=== PATIENT | female | born 1960 | race Caucasian/White ===

== ENCOUNTER 2019-01-21 09:03 | Emergency (ER) | payer MEDICAID ==
[~2019-01-21] VITALS: Ht 165.1 cm; Wt 88.6 kg
[~2019-01-21 09:03] MED LIST: CEPH500C2 PO; EMOL200L TP; SULF1TAB49 PO
[2019-01-21] MEDS ORDERED: ipratropium/albuterol 3ml nebule NEB ONE (09:45)
[2019-01-21] MEDS ORDERED: dexamethasone 4mg tablet PO ONE (09:45)
--- NOTE | 2019-01-21 10:17 | NUR ---
relieving RN for break, pt is resting quietly on [employer] labor standards director at bedside
[2019-01-21 10:55] LABS: PARTIAL THROMBOPLASTIN TIME 24 SECONDS (22-32)
[2019-01-21 11:11] LABS: ALANINE AMINOTRANSFERASE 82 U/L (12-78); ALBUMIN 3.4 G/DL (3.4-5.0); ALBUMIN/GLOBULIN RATIO 0.7 (1.1-1.5); ALKALINE PHOSPHATASE 167 IU/L (46-116); ANION GAP 8 (8-16); ASPARTATE AMINO TRANSFERASE 56 U/L (10-37); BILIRUBIN,TOTAL 0.7 MG/DL (0.1-1.0); BLOOD UREA NITROGEN 10 MG/DL (7-18); BUN/CREATININE RATIO 17.2 (6.6-38.0); CALCIUM 9.6 MG/DL (8.5-10.1); CHLORIDE 101 MMOL/L (99-107); CREATININE 0.58 MG/DL (0.40-0.90); GLUCOSE 66 MG/DL (70-104); MAGNESIUM 1.7 MG/DL (1.5-2.4); POTASSIUM 4.1 MMOL/L (3.5-5.1); SODIUM 135 MMOL/L (135-145); TOTAL CARBON DIOXIDE 26.1 MMOL/L (24-32); TOTAL PROTEIN 8.2 G/DL (6.4-8.2); eGFR > 90 ML/MIN
--- NOTE | 2019-01-21 11:33 | NUR ---
patient feeling "hypoglycemic" "that's why im so sleepy" patient eating yogurt and drinking whole milk at this time
--- NOTE | 2019-01-21 12:30 | NUR ---
PATIENT ATE A SANDWHICH, 6 OZ YOGURT , 240 ML WHOLE MILK, 2 PACKS CRACKERS, 120 ML OJ
[2019-01-21 12:43] LABS: BASOPHILS % (AUTO) 0.4 % (0-1); EOSINOPHILS % (AUTO) 0.5 % (0-6); HEMATOCRIT 44.6 % (35.0-45.0); HEMOGLOBIN 15.4 g/dl (12.0-16.0); LYMPHOCYTES # (AUTO) 0.5 X10'3 (1.1-4.8); LYMPHOCYTES % (AUTO) 7.3 % (21-51); MEAN CORPUSCULAR HEMOGLOBIN 33.4 PG (27.0-31.0); MEAN CORPUSCULAR HGB CONC 34.5 g/dL (33.0-36.5); MEAN CORPUSCULAR VOLUME 96.9 FL (78-98); MEAN PLATELET VOLUME 7.6 FL (7.4-10.4); MONOCYTES # (AUTO) 0.1 X10'3 (0-0.9); MONOCYTES % (AUTO) 1.7 % (2-12); NEUTROPHILS # (AUTO) 5.8 X10'3 (1.8-7.7); NEUTROPHILS % (AUTO) 90.1 % (42-75); PLATELET COUNT 146 X10'3 (140-440); RED BLOOD COUNT 4.61 X10'6 (4.20-5.60); RED CELL DISTRIBUTION WIDTH 13.5 % (11.5-14.5); WHITE BLOOD COUNT 6.4 X10'3 (4.5-11.0)
[2019-01-21] MEDS ORDERED: azithromycin 250mg tablet PO ONE (13:40)
[2019-01-21] MEDS ORDERED: EPIN0.3P3 IM (13:41)
[2019-01-21] MEDS ORDERED: PRED20TA PO (13:41)
[2019-01-21] MEDS ORDERED: AZIT250T2 PO (13:41)
[2019-01-21] MEDS ORDERED: ALBU6.7H INH (13:41)
--- NOTE | 2019-01-21 13:53 | NUR ---
relieving RN for break, pt is resting quietly on gurney, waiting to go to CT
--- NOTE | 2019-01-21 13:57 | NUR ---
pt to CT
[2019-01-21 14:48] VITALS: BP 119/73
== END 2019-01-21 14:50 | disposition home or self-care (01) ==
LOC: ER 09:03
DX: J90 Pleural effusion, not elsewhere classified (principal); E11.9 Type 2 diabetes mellitus without complications; Z98.890 Other specified postprocedural states; Z56.0 Unemployment, unspecified; Z88.8 Allergy status to other drugs, medicaments and biological substances; Z88.5 Allergy status to narcotic agent; Z79.899 Other long term (current) drug therapy
CPT/HCPCS: 36415; 71046; 71250; 80053; 83605; 83735; 83880; 84484; 85025; 85610; 85730; 87040; 93005; 94640; 94760; 99284; J8540

== ENCOUNTER 2019-08-27 13:19 | Emergency (ER) | payer MEDICAID ==
[~2019-08-27] VITALS: Ht 165.1 cm; Wt 93.2 kg
[~2019-08-27 13:19] MED LIST changes: +ALBU6.7H9 INH; +EPIN0.3P3 IM
[2019-08-27 13:23] VITALS: BP 133/78
[2019-08-27] MEDS ORDERED: METH-360 PO (14:33)
[2019-08-27] MEDS ORDERED: NAPR-56 PO (14:33)
[2019-08-27] MEDS ORDERED: ketorolac tromethamine 15mg/ml inj. IM ONE (14:35)
[2019-08-27] MEDS ORDERED: orphenadrine citrate 60mg/2ml inj. IM ONE (14:35)
== END 2019-08-27 14:49 | disposition home or self-care (01) ==
LOC: ER 13:20
DX: M25.511 Pain in right shoulder (principal); E11.9 Type 2 diabetes mellitus without complications; Z98.890 Other specified postprocedural states; Z56.0 Unemployment, unspecified; Z88.8 Allergy status to other drugs, medicaments and biological substances; Z88.6 Allergy status to analgesic agent; Z88.5 Allergy status to narcotic agent; Z79.899 Other long term (current) drug therapy; X50.1XXA Overexertion from prolonged static or awkward postures, initial encounter; Y93.89 Activity, other specified; Y92.89 Other specified places as the place of occurrence of the external cause; Y99.8 Other external cause status
CPT/HCPCS: 96372; 99283; J1885; J2360

== ENCOUNTER 2019-08-30 18:22 | Emergency (ER) | payer MEDICAID ==
[~2019-08-30] VITALS: Ht 165.1 cm; Wt 93.0 kg
[~2019-08-30 18:22] MED LIST changes: +METH-360 PO; +NAPR-56 PO
[2019-08-30] MEDS ORDERED: oxyCODONE/APAP 5-325mg tablet PO ONE (19:05)
[2019-08-30] MEDS ORDERED: ondansetron 4mg rapidly disintigrating tab PO ONE (19:05)
[2019-08-30] MEDS ORDERED: OXYC-134 PO (19:48)
[2019-08-30] MEDS ORDERED: ONDA4TAB12 PO (19:48)
[2019-08-30 20:15] VITALS: BP 122/67
== END 2019-08-30 20:17 | disposition home or self-care (01) ==
LOC: ER 18:23
DX: M25.511 Pain in right shoulder (principal); E11.9 Type 2 diabetes mellitus without complications; Z98.890 Other specified postprocedural states; Z56.0 Unemployment, unspecified; Z88.6 Allergy status to analgesic agent; Z88.5 Allergy status to narcotic agent; Z79.899 Other long term (current) drug therapy
CPT/HCPCS: 73030; 99283

== ENCOUNTER 2019-09-02 13:04 | Inpatient (IN) | payer MEDICAID ==
[~2019-09-02] VITALS: Ht 165.1 cm; Wt 93.0 kg
[~2019-09-02 13:04] MED LIST changes: +ONDA4TAB12 PO; +OXYC-134 PO
[2019-09-02 14:43] LABS: EOSINOPHILS # (AUTO) 0.1 X10'3 (0-0.9); EOSINOPHILS % (AUTO) 0.4 % (0-6); MEAN CORPUSCULAR HEMOGLOBIN 33.9 PG (27.0-31.0)
[2019-09-02 14:45] LABS: BASOPHILS % (AUTO) 0.2 % (0-1); HEMATOCRIT 44.8 % (35.0-45.0); HEMOGLOBIN 15.5 g/dl (12.0-16.0); LYMPHOCYTES # (AUTO) 0.7 X10'3 (1.1-4.8); LYMPHOCYTES % (AUTO) 4.1 % (21-51); MEAN CORPUSCULAR HGB CONC 34.7 g/dL (33.0-36.5); MEAN CORPUSCULAR VOLUME 97.9 FL (78-98); MEAN PLATELET VOLUME 7.8 FL (7.4-10.4); MONOCYTES # (AUTO) 1.4 X10'3 (0-0.9); NEUTROPHILS # (AUTO) 15.3 X10'3 (1.8-7.7); NEUTROPHILS % (AUTO) 87.3 % (42-75); PLATELET COUNT 223 X10'3 (140-440); RED BLOOD COUNT 4.58 X10'6 (4.20-5.60); WHITE BLOOD COUNT 17.5 X10'3 (4.5-11.0)
[2019-09-02 14:57] LABS: ALANINE AMINOTRANSFERASE 49 U/L (12-78); ALBUMIN 2.7 G/DL (3.4-5.0); ALBUMIN/GLOBULIN RATIO 0.6 (1.1-1.5); ALKALINE PHOSPHATASE 163 IU/L (46-116); ANION GAP 5 (8-16); ASPARTATE AMINO TRANSFERASE 50 U/L (10-37); BILIRUBIN,TOTAL 0.8 MG/DL (0.1-1.0); BLOOD UREA NITROGEN 19 MG/DL (7-18); BUN/CREATININE RATIO 24.7 (6.6-38.0); CALCIUM 8.9 MG/DL (8.5-10.1); CHLORIDE 100 MMOL/L (99-107); CREATININE 0.77 MG/DL (0.40-0.90); GLUCOSE 100 MG/DL (70-104); LIPASE 55 U/L (73-393); POTASSIUM 4.6 MMOL/L (3.5-5.1); SODIUM 133 MMOL/L (135-145); TOTAL CARBON DIOXIDE 28.5 MMOL/L (24-32); TOTAL PROTEIN 7.1 G/DL (6.4-8.2); eGFR 77 ML/MIN
[2019-09-02] MEDS ORDERED: oxyCODONE/APAP 5-325mg tablet PO ONE (15:20)
[2019-09-02] MEDS ORDERED: ondansetron/PF 4mg/2ml inj IV ONE (15:20)
[2019-09-02] MEDS ORDERED: ketorolac trometh. 30mg/ml inj. IM ONE (15:20)
[2019-09-02] MEDS ORDERED: normal saline 1000ML IV soln IVB ONE (15:20)
[2019-09-02 16:29] LABS: PARTIAL THROMBOPLASTIN TIME 27 SECONDS (22-32)
--- NOTE | 2019-09-02 16:55 | NUR ---
IN TO ATTEMPT AND IV ON PT. PT STARTED CUSSING AND YELLING AT ME STATING "THEY CAN;T GET AN IV ON ME, I HAVE HAD SO MANY IVS AND YOU WONT BE ABLE TO GET ONE" EXPLAINED TO PT THE IMPORTANCE OF IV FLUIDS SHE IS DEHYDRATED. ATTEMPTED TO LOOK IN PTS HANDS AND SHE STARED TO YELL "JUST GIVE ME A SHOT." INFORMED DANIELLA TAO AND SHE WENT IN TO SEE PT SHE INFORMED PT OF THE IMPORTANCE OF THE IV AND FLUID. PT STATES SHE UNDERSTANDS BUT JUST NEEDS PAIN MEDS. PER DANIELLA OK TO GIVE TORADOL AND ZOFRAN IM. PT STATES SHE DID NOT KNOW WHAT THE MEDS ARE. EDUACTED PT ON TORADOL AND ZOFAN ALSO INFORMED PT SHE WAS GETTING PERCOCET. PT CHEWED THE PERCOCET, AND OTHER MEDS GIVEN IM IN LEFT GLUT. WILL RETURN TO CHECK PTS PAIN LEVEL AND ATTEMPT
[2019-09-02 17:51] LABS: CLARITY,URINE CLEAR (Clear); COLOR,URINE YELLOW (Yellow); GLUCOSE, URINE NEGATIVE (Neg); KETONES,URINE NEGATIVE (Neg); LEUKOCYTE ESTERASE ,URINE TRACE (Neg); NITRITES, URINE NEGATIVE (Neg); OCCULT BLOOD,URINE TRACE-INTACT (Neg); PROTEIN,URINE TRACE mg/dl (Neg); URINE HCG NEGATIVE (NEG)
[2019-09-02 17:54] LABS: UA COLLECTION TYPE CLN CATCH MIDSTREAM
[2019-09-02 17:55] LABS: RBC,URINE NONE SEEN /HPF (0-2); WBC,URINE 0-4 /HPF (0-4)
[2019-09-02 17:56] LABS: BACTERIA,URINE FEW /HPF (Neg); MUCUS STRANDS FEW /LPF (Neg); SQUAMOUS EPITHELIAL CELL,UR MODERATE /LPF (FEW)
--- NOTE | 2019-09-02 18:06 | NUR ---
AFTER MULTIPLE ATTEMPTS 18G TO RIGHT EJ STARTED. PT PAIN 2/10. PT DECREASED ANXIETY ABLE TO KHANH IV START AFTER PAIN MEDS AND REST
[2019-09-02] MEDS ORDERED: CefTRIAXone 2gm/D5W 50ml 50 ML IV ONE (18:10)
[2019-09-02] MEDS ORDERED: azithromycin/NS 500mg/250ml 250 ML IV ONE (18:10)
[2019-09-02] MEDS ORDERED: BUPR200T2 PO (19:20)
[2019-09-02] MEDS ORDERED: magnesium 4gm in 100ml NS 100 ML IV PRN (20:45)
[2019-09-02] MEDS ORDERED: magnesium Cl slow-release 64mg tablet PO PRN (20:45)
[2019-09-02] MEDS ORDERED: potassium Cl 20 mEq SR tablet PO PRN ×2 (20:45)
[2019-09-02] MEDS ORDERED: magnesium 2GM in 50ml NS 50 ML IV PRN (20:45)
[2019-09-02] MEDS ORDERED: potassium CL 10mEq/100ml bag 100 ML IV PRN ×2 (20:45)
[2019-09-02] MEDS ORDERED: mag hydrox/Alum hydrox/simeth 30ml oral suspension PO PRN (20:45)
--- NOTE | 2019-09-02 21:17 | NUR ---
pt currently appears to be asleep. RR WNLs.
--- NOTE | 2019-09-02 21:45 | NUR ---
Patient in room [facility] 346 B. I have received report from Anup and had the opportunity to ask questions and assume patient care. Addendum: 09/02/19 at 2347 by Tiffanie Garcia RN Amended: Links added.
[2019-09-02 22:00] VITALS: BP 115/71
--- NOTE | 2019-09-02 22:00 | NUR ---
2200 pt arrived on floor via garney from the ER accompanied by SUSU Matias. Pt. awake alert and oriented at this time. Pt. denies c/o pain at this time. Addendum: 09/02/19 at 2347 by Tiffanie Garcia RN Amended: Links added.
[2019-09-03] VITALS: BP 127/68
[2019-09-03] MEDS: oxyCODONE/APAP 5-325mg tablet PO PRN ×3 (03:04→21:32)
[2019-09-03] MEDS ORDERED: normal saline 1000ml 1,000 ML IV SCH (03:15)
[2019-09-03 05:20] LABS: BASOPHILS # (AUTO) 0.1 X10'3 (0-0.2); BASOPHILS % (AUTO) 0.4 % (0-1); EOSINOPHILS # (AUTO) 0.1 X10'3 (0-0.9); EOSINOPHILS % (AUTO) 0.4 % (0-6); HEMATOCRIT 39.4 % (35.0-45.0); HEMOGLOBIN 13.6 g/dl (12.0-16.0); LYMPHOCYTES % (AUTO) 5.5 % (21-51); MEAN CORPUSCULAR HEMOGLOBIN 33.9 PG (27.0-31.0); MEAN CORPUSCULAR HGB CONC 34.5 g/dL (33.0-36.5); MEAN CORPUSCULAR VOLUME 98.4 FL (78-98); MEAN PLATELET VOLUME 7.9 FL (7.4-10.4); MONOCYTES # (AUTO) 2.1 X10'3 (0-0.9); MONOCYTES % (AUTO) 11.6 % (2-12); NEUTROPHILS # (AUTO) 14.6 X10'3 (1.8-7.7); NEUTROPHILS % (AUTO) 82.1 % (42-75); PLATELET COUNT 214 X10'3 (140-440); RED CELL DISTRIBUTION WIDTH 13.9 % (11.5-14.5); WHITE BLOOD COUNT 17.8 X10'3 (4.5-11.0)
[2019-09-03 05:38] LABS: ALBUMIN 2.2 G/DL (3.4-5.0); ANION GAP 6 (8-16); BLOOD UREA NITROGEN 22 MG/DL (7-18); BUN/CREATININE RATIO 28.6 (6.6-38.0); CALCIUM 8.2 MG/DL (8.5-10.1); CHLORIDE 100 MMOL/L (99-107); CREATININE 0.77 MG/DL (0.40-0.90); GLUCOSE 94 MG/DL (70-104); MAGNESIUM 1.7 MG/DL (1.5-2.4); POTASSIUM 4.4 MMOL/L (3.5-5.1); SODIUM 131 MMOL/L (135-145); TOTAL CARBON DIOXIDE 25.3 MMOL/L (24-32); eGFR 77 ML/MIN
--- NOTE | 2019-09-03 06:00 | NUR ---
Problems reprioritized. Patient report given, questions answered & plan of care reviewed with Estee CRISTOBAL. Addendum: 09/03/19 at 0653 by Tiffanie Garcia RN Amended: Links added.
[2019-09-03] MEDS ORDERED: dextrose ORAL solution 15 GM/59 ML bottle PO PRN ×2 (06:25)
[2019-09-03] MEDS ORDERED: glucagon, human recombinant 1mg kit SUBCUT PRN (06:25)
[2019-09-03] MEDS ORDERED: insulin Lispro (HumaLOG) vial - multi-dose SQ SCH (06:25)
[2019-09-03] MEDS ORDERED: dextrose 50%-water 50ml dispensing syringe IV PRN ×2 (06:25)
[2019-09-03] MEDS ORDERED: MESSAGE TO PHARMACY PO ONE (06:25)
--- NOTE | 2019-09-03 06:25 | NUR ---
Patient in room [facility] 346B. I have received report from Tiffanie CRISTOBAL and had the opportunity to ask questions and assume patient care.
[2019-09-03] MEDS ORDERED: EPINEPHRINE IM PRN (06:35)
[2019-09-03 07:00] VITALS: BP 141/58
--- NOTE | 2019-09-03 07:24 | NUR ---
Received positive blood culture report from lab, paged Dr France PAGER ID: [phone] MESSAGE: Estee copeland Surg. RE [facility] 346B. FYI Lab reported positive gram cocci clusters from IV start on 09/02. Thank you
[2019-09-03 07:37] LABS: HEMOGLOBIN A1C 5.5 % (4.5-6.2)
[2019-09-03] MEDS: buPROPion SR 100mg tab PO SCH (07:43)
[2019-09-03] MEDS: lactobacillus rhamnosus 10,000 MMU CELLS/CAPSULE PO SCH ×2 (07:43→19:50)
[2019-09-03] MEDS: K and/or MAG REPLACEMENT MC SCH ×2 (07:46→20:00)
[2019-09-03] MEDS ORDERED: enoxaparin 40mg/0.4ml syringe SQ SCH (08:00)
--- NOTE | 2019-09-03 08:36 | NUR ---
Paged Dr France regarding additional positive blood culture lab reported PAGER ID: [phone] MESSAGE: Estee copeland [phone]. RE [facility] 346B. FYI pt also has positive gram cocci clusters in left arm aerobic blood culture. Thank you
[2019-09-03 11:00] VITALS: BP 119/37
--- NOTE | 2019-09-03 12:08 | NUR ---
Paged Dr France to make aware of additional positive blood culture: gram positive cocci clusters; anaerobic bottle; source IV start
[2019-09-03] MEDS ORDERED: vancomycin/NS 1 GM ADD-VANTAGE 250 ML IV SCH (13:55)
[2019-09-03] MEDS: vancomycin/NS 1 GM ADD-VANTAGE 250 ML IV SCH ×2 (14:26→16:05)
[2019-09-03 18:00] VITALS: BP 141/69
[2019-09-03] MEDS ORDERED: azithromycin/NS 500mg/250ml 250 ML IV SCH (18:00)
[2019-09-03] MEDS ORDERED: CefTRIAXone 2gm/D5W 50ml 50 ML IV SCH (18:00)
--- NOTE | 2019-09-03 18:22 | NUR ---
Problems reprioritized. Patient report given, questions answered & plan of care reviewed with Walt CRISTOBAL.
--- NOTE | 2019-09-03 18:28 | NUR ---
Patient in room [facility] 346. I have received report from SUSU Fontanez and had the opportunity to ask questions and assume patient care.
[2019-09-03] MEDS: ondansetron/PF 4mg/2ml inj IV PRN (19:03)
[2019-09-03] MEDS ORDERED: acetaminophen 325mg tablet PO PRN (19:40)
[2019-09-03] MEDS ORDERED: lactobacillus rhamnosus 10,000 MMU CELLS/CAPSULE PO SCH (20:00)
[2019-09-03] MEDS: insulin glargine (Lantus) pen - multi-dose SQ SCH (21:00)
[2019-09-04 00:31] VITALS: BP 118/64
[2019-09-04 03:55] LABS: EOSINOPHILS # (AUTO) 0.1 X10'3 (0-0.9); EOSINOPHILS % (AUTO) 0.7 % (0-6); LYMPHOCYTES # (AUTO) 0.8 X10'3 (1.1-4.8); MEAN PLATELET VOLUME 7.4 FL (7.4-10.4); NEUTROPHILS % (AUTO) 79.8 % (42-75)
[2019-09-04 03:58] LABS: BASOPHILS # (AUTO) 0.1 X10'3 (0-0.2); BASOPHILS % (AUTO) 0.6 % (0-1); HEMATOCRIT 39.5 % (35.0-45.0); HEMOGLOBIN 13.5 g/dl (12.0-16.0); LYMPHOCYTES % (AUTO) 5.7 % (21-51); MEAN CORPUSCULAR HEMOGLOBIN 33.7 PG (27.0-31.0); MEAN CORPUSCULAR HGB CONC 34.3 g/dL (33.0-36.5); MEAN CORPUSCULAR VOLUME 98.4 FL (78-98); MONOCYTES # (AUTO) 1.9 X10'3 (0-0.9); MONOCYTES % (AUTO) 13.2 % (2-12); NEUTROPHILS # (AUTO) 11.7 X10'3 (1.8-7.7); PLATELET COUNT 170 X10'3 (140-440); RED BLOOD COUNT 4.01 X10'6 (4.20-5.60); RED CELL DISTRIBUTION WIDTH 13.8 % (11.5-14.5); WHITE BLOOD COUNT 14.6 X10'3 (4.5-11.0)
[2019-09-04] MEDS ORDERED: vancomycin/NS 1 GM ADD-VANTAGE 250 ML IV SCH (04:00)
[2019-09-04 04:01] LABS: ANION GAP 4 (8-16); BLOOD UREA NITROGEN 13 MG/DL (7-18); BUN/CREATININE RATIO 20.3 (6.6-38.0); CALCIUM 8.3 MG/DL (8.5-10.1); CHLORIDE 106 MMOL/L (99-107); CREATININE 0.64 MG/DL (0.40-0.90); GLUCOSE 89 MG/DL (70-104); LACTATE DEHYDROGENASE 216 U/L (81-234); MAGNESIUM 1.8 MG/DL (1.5-2.4); POTASSIUM 4.2 MMOL/L (3.5-5.1); SODIUM 137 MMOL/L (135-145); eGFR > 90 ML/MIN
[2019-09-04] MEDS: oxyCODONE/APAP 5-325mg tablet PO PRN (04:01)
--- NOTE | 2019-09-04 06:22 | NUR ---
Problems reprioritized. Patient report given, questions answered & plan of care reviewed with SUSU Singh.
[2019-09-04 07:00] VITALS: BP 126/70
[2019-09-04] MEDS: K and/or MAG REPLACEMENT MC SCH ×2 (08:00→20:00)
[2019-09-04] MEDS: buPROPion SR 100mg tab PO SCH (09:10)
[2019-09-04] MEDS: lactobacillus rhamnosus 10,000 MMU CELLS/CAPSULE PO SCH ×2 (09:10→21:21)
[2019-09-04 10:22] VITALS: BP 127/67
[2019-09-04 10:45] VITALS: BP 138/75
[2019-09-04 11:27] VITALS: BP 144/71
[2019-09-04 12:14] LABS: GLUCOSE,BODY FLUID 74 MG/DL; LDH,BODY FLUID 684 U/L
[2019-09-04 12:57] LABS: EOSINOPHILS,BODY FLUID 4 %; LYMPHOCYTES,BODY FLUID 8 %; MONOCYTES,BODY FLUID 1 %; NEUTROPHILS,BODY FLUID 87 %
[2019-09-04 12:58] LABS: BFAPPEAR CLOUDY
[2019-09-04 12:59] LABS: BF RBC COUNT 1480 /CU MM; BF WBC COUNT 860 /CU MM (0-1000); BFCOLOR YELLOW; BFVOLUME 34 ML
--- NOTE | 2019-09-04 13:12 | NUR ---
made aware of large lump on pt.'s throat. Pt. states the lump has moved from right lower chest to throat. No issues swallowing.
--- NOTE | 2019-09-04 16:15 | NUR ---
MD feliciano pt. would like to have DNR status. Addendum: 09/04/19 at 1819 by Samantha Palacios RN Wrong ptOxana ERROR.
[2019-09-04] MEDS: VANCOmycin 1250MG/NS 250ml Bag 250 ML IV SCH (16:27)
[2019-09-04] MEDS: acetaminophen 325mg tablet PO PRN (17:40)
[2019-09-04] MEDS: ondansetron/PF 4mg/2ml inj IV PRN (17:42)
--- NOTE | 2019-09-04 18:13 | NUR ---
MD aware pt. had a low BG of 69 around 1730. MD states keep pt. on same fluids- D10 @ 100 and check BG Q2H. Ary RN aware. Addendum: 09/04/19 at 1820 by Samantha Palacios RN Wrong pt. ERROR
--- NOTE | 2019-09-04 18:40 | NUR ---
Patient in room [facility] 346. I have received report from Samantha CRISTOBAL and had the opportunity to ask questions and assume patient care.
--- NOTE | 2019-09-04 18:51 | NUR ---
Prescriptions found in room/ belongings. Stored in pharmacy.
--- NOTE | 2019-09-04 18:52 | NUR ---
Gave report to Krystal CRISTOBAL.
[2019-09-04 19:00] VITALS: BP 110/53
--- NOTE | 2019-09-04 19:03 | NUR ---
Pt. still receiving IV Vanco. Oncoming RN aware of 1800 doses of IV antibiotics.
--- NOTE | 2019-09-04 19:06 | NUR ---
Called pharmacy to space out the AbX as pt. only has an EJ to use.
[2019-09-04] MEDS: CefTRIAXone 2gm/D5W 50ml 50 ML IV SCH (19:26)
[2019-09-04] MEDS: insulin glargine (Lantus) pen - multi-dose SQ SCH (21:00)
[2019-09-04] MEDS: azithromycin/NS 500mg/250ml 250 ML IV SCH (21:22)
[2019-09-04] MEDS: magnesium hydroxide 30ml (MOM) UD suspension PO PRN (21:35)
[2019-09-05] VITALS: BP_SYST 128; BP_SYST 138; BP_DIAS 76; BP_DIAS 80
[2019-09-05] MEDS ORDERED: VANCOMYCIN LEVEL IV ONE (03:30)
[2019-09-05] MEDS: ondansetron/PF 4mg/2ml inj IV PRN ×2 (03:39→12:57)
[2019-09-05] MEDS: VANCOmycin 1250MG/NS 250ml Bag 250 ML IV SCH ×2 (03:39→17:39)
[2019-09-05 05:07] LABS: BASOPHILS # (AUTO) 0.1 X10'3 (0-0.2); BASOPHILS % (AUTO) 0.4 % (0-1); EOSINOPHILS % (AUTO) 0.3 % (0-6); HEMATOCRIT 37.1 % (35.0-45.0); HEMOGLOBIN 12.7 g/dl (12.0-16.0); LYMPHOCYTES # (AUTO) 0.7 X10'3 (1.1-4.8); LYMPHOCYTES % (AUTO) 5.1 % (21-51); MEAN CORPUSCULAR HEMOGLOBIN 33.6 PG (27.0-31.0); MEAN CORPUSCULAR HGB CONC 34.3 g/dL (33.0-36.5); MEAN PLATELET VOLUME 7.6 FL (7.4-10.4); MONOCYTES # (AUTO) 1.4 X10'3 (0-0.9); MONOCYTES % (AUTO) 9.5 % (2-12); NEUTROPHILS # (AUTO) 12.1 X10'3 (1.8-7.7); NEUTROPHILS % (AUTO) 84.7 % (42-75); PLATELET COUNT 161 X10'3 (140-440); RED BLOOD COUNT 3.78 X10'6 (4.20-5.60); RED CELL DISTRIBUTION WIDTH 13.8 % (11.5-14.5); WHITE BLOOD COUNT 14.3 X10'3 (4.5-11.0)
[2019-09-05 05:26] LABS: ANION GAP 5 (8-16); BLOOD UREA NITROGEN 11 MG/DL (7-18); BUN/CREATININE RATIO 17.5 (6.6-38.0); CALCIUM 8.5 MG/DL (8.5-10.1); CHLORIDE 105 MMOL/L (99-107); CREATININE 0.63 MG/DL (0.40-0.90); GLUCOSE 89 MG/DL (70-104); MAGNESIUM 1.9 MG/DL (1.5-2.4); SODIUM 137 MMOL/L (135-145); TOTAL CARBON DIOXIDE 27.1 MMOL/L (24-32); eGFR > 90 ML/MIN
[2019-09-05 05:53] LABS: PLATELET ESTIMATE NORMAL; TOTAL CELLS COUNTED 100; TOXIC GRANULATION 2+
--- NOTE | 2019-09-05 06:00 | NUR ---
Patient in room [facility] 346. I have received report from Krystal CRISTOBAL, and had the opportunity to ask questions and assume patient care.
--- NOTE | 2019-09-05 06:30 | NUR ---
Problems reprioritized. Patient report given, questions answered & plan of care reviewed with Irma rn and Jey chavarria.
[2019-09-05 07:00] VITALS: BP 117/73
[2019-09-05] MEDS: K and/or MAG REPLACEMENT MC SCH ×2 (08:00→20:00)
[2019-09-05] MEDS: buPROPion SR 100mg tab PO SCH (08:55)
[2019-09-05] MEDS: lactobacillus rhamnosus 10,000 MMU CELLS/CAPSULE PO SCH ×2 (08:55→20:00)
[2019-09-05 11:00] VITALS: BP 104/62
[2019-09-05] MEDS ORDERED: iohexol 300mg/ml 100ml inj. ONE ×2 (15:09→15:42)
[2019-09-05] MEDS ORDERED: metoclopramide 5 mg/ml inj IV PRN (16:10)
--- NOTE | 2019-09-05 18:00 | NUR ---
Problems reprioritized. Patient report given, questions answered & plan of care reviewed with Krystal CRISTOBAL.
--- NOTE | 2019-09-05 18:30 | NUR ---
Patient in room [facility] 346. I have received report from Irma CRISTOBAL and Jey RN and had the opportunity to ask questions and assume patient care.
[2019-09-05 19:00] VITALS: BP 130/70
[2019-09-05] MEDS: CefTRIAXone 2gm/D5W 50ml 50 ML IV SCH (20:14)
[2019-09-05] MEDS: insulin glargine (Lantus) pen - multi-dose SQ SCH (21:00)
[2019-09-05] MEDS: azithromycin/NS 500mg/250ml 250 ML IV SCH (21:25)
[2019-09-05] MEDS: oxyCODONE/APAP 5-325mg tablet PO PRN (21:26)
--- NOTE | 2019-09-05 22:30 | NUR ---
CREDIT CARD ANALYST answering call light find patient in a wet gown/bed. Unfortunately R DAVID had cannula mostly out and had leaked ABX that was infusing. Josee HERNANDEZ dc'd and call down to ER for placement of a new PIV (as patient a very hard stick).
--- NOTE | 2019-09-05 23:20 | NUR ---
MECHANICAL MAINTENANCE ENGINEER in assessing patient for a new PIV placement.
[2019-09-06] MEDS ORDERED: VANCOMYCIN LEVEL IV ONE (03:30)
[2019-09-06] MEDS: VANCOmycin 1250MG/NS 250ml Bag 250 ML IV SCH (04:21)
[2019-09-06 04:22] LABS: BASOPHILS % (AUTO) 0.3 % (0-1); EOSINOPHILS % (AUTO) 0.8 % (0-6); HEMATOCRIT 37.8 % (35.0-45.0); LYMPHOCYTES % (AUTO) 6.8 % (21-51); MEAN CORPUSCULAR HEMOGLOBIN 33.6 PG (27.0-31.0); MEAN CORPUSCULAR HGB CONC 34.3 g/dL (33.0-36.5); MEAN CORPUSCULAR VOLUME 97.9 FL (78-98); MEAN PLATELET VOLUME 7.9 FL (7.4-10.4); NEUTROPHILS % (AUTO) 85.1 % (42-75); PLATELET COUNT 167 X10'3 (140-440); RED BLOOD COUNT 3.86 X10'6 (4.20-5.60); RED CELL DISTRIBUTION WIDTH 13.9 % (11.5-14.5); WHITE BLOOD COUNT 14.9 X10'3 (4.5-11.0)
[2019-09-06 04:23] LABS: EOSINOPHILS # (AUTO) 0.1 X10'3 (0-0.9); NEUTROPHILS # (AUTO) 12.7 X10'3 (1.8-7.7)
[2019-09-06 04:34] LABS: ALBUMIN 1.9 G/DL (3.4-5.0); ANION GAP 7 (8-16); BLOOD UREA NITROGEN 14 MG/DL (7-18); BUN/CREATININE RATIO 21.5 (6.6-38.0); CALCIUM 8.5 MG/DL (8.5-10.1); CHLORIDE 107 MMOL/L (99-107); CREATININE 0.65 MG/DL (0.40-0.90); GLUCOSE 79 MG/DL (70-104); MAGNESIUM 2.1 MG/DL (1.5-2.4); POTASSIUM 3.9 MMOL/L (3.5-5.1); SODIUM 140 MMOL/L (135-145); TOTAL CARBON DIOXIDE 25.6 MMOL/L (24-32); VANCOMYCIN,TROUGH 7.1 UG/ML (6.0-14.0); eGFR > 90 ML/MIN
[2019-09-06] MEDS: ondansetron/PF 4mg/2ml inj IV PRN ×2 (06:03→19:48)
--- NOTE | 2019-09-06 06:10 | NUR ---
Patient in room [facility] 346. I have received report from SUSU Rice and had the opportunity to ask questions and assume patient care.
[2019-09-06 06:30] VITALS: BP 122/76
[2019-09-06] MEDS: K and/or MAG REPLACEMENT MC SCH ×2 (06:59→20:00)
[2019-09-06] MEDS ORDERED: VANCOmycin 1250MG/NS 250ml Bag 250 ML IV SCH (08:00)
[2019-09-06] MEDS: lactobacillus rhamnosus 10,000 MMU CELLS/CAPSULE PO SCH ×2 (08:35→19:51)
[2019-09-06] MEDS: levoFLOXACIN-Levaquin 750MG/D5 150 ML IV SCH (08:35)
[2019-09-06] MEDS: buPROPion SR 100mg tab PO SCH (08:35)
[2019-09-06 11:00] VITALS: BP 111/63
[2019-09-06] MEDS: oxyCODONE/APAP 5-325mg tablet PO PRN ×2 (13:37→22:49)
[2019-09-06] MEDS: acetaminophen 325mg tablet PO PRN (17:57)
--- NOTE | 2019-09-06 18:30 | NUR ---
Problems reprioritized. Patient report given, questions answered & plan of care reviewed with SUSU Rice.
[2019-09-06 19:00] VITALS: BP 103/72
[2019-09-07] VITALS: BP 128/78
[2019-09-07] MEDS: magnesium hydroxide 30ml (MOM) UD suspension PO PRN (00:14)
[2019-09-07] MEDS: oxyCODONE/APAP 5-325mg tablet PO PRN (05:27)
--- NOTE | 2019-09-07 06:14 | NUR ---
Problems reprioritized. Patient report given, questions answered & plan of care reviewed with Urvashi RN.
[2019-09-07 06:21] LABS: BASOPHILS # (AUTO) 0.1 X10'3 (0-0.2); BASOPHILS % (AUTO) 0.4 % (0-1); EOSINOPHILS # (AUTO) 0.1 X10'3 (0-0.9); HEMATOCRIT 37.1 % (35.0-45.0); HEMOGLOBIN 12.7 g/dl (12.0-16.0); LYMPHOCYTES # (AUTO) 0.8 X10'3 (1.1-4.8); LYMPHOCYTES % (AUTO) 7.3 % (21-51); MEAN CORPUSCULAR HEMOGLOBIN 33.9 PG (27.0-31.0); MEAN CORPUSCULAR HGB CONC 34.4 g/dL (33.0-36.5); MEAN CORPUSCULAR VOLUME 98.7 FL (78-98); MONOCYTES # (AUTO) 0.6 X10'3 (0-0.9); NEUTROPHILS # (AUTO) 10.1 X10'3 (1.8-7.7); NEUTROPHILS % (AUTO) 86.3 % (42-75); PLATELET COUNT 162 X10'3 (140-440); RED BLOOD COUNT 3.76 X10'6 (4.20-5.60); RED CELL DISTRIBUTION WIDTH 13.8 % (11.5-14.5); WHITE BLOOD COUNT 11.7 X10'3 (4.5-11.0)
--- NOTE | 2019-09-07 06:39 | NUR ---
Patient in room [facility] 346. I have received report from SUSU Rice and had the opportunity to ask questions and assume patient care.
[2019-09-07 06:40] LABS: ALBUMIN 1.9 G/DL (3.4-5.0); ANION GAP 9 (8-16); BLOOD UREA NITROGEN 15 MG/DL (7-18); BUN/CREATININE RATIO 25.4 (6.6-38.0); CALCIUM 8.4 MG/DL (8.5-10.1); CHLORIDE 106 MMOL/L (99-107); CREATININE 0.59 MG/DL (0.40-0.90); GLUCOSE 75 MG/DL (70-104); SODIUM 142 MMOL/L (135-145); TOTAL CARBON DIOXIDE 27.2 MMOL/L (24-32); eGFR > 90 ML/MIN
[2019-09-07 07:20] VITALS: BP 117/55
[2019-09-07] MEDS ORDERED: VANCOMYCIN LEVEL IV ONE (07:30)
[2019-09-07] MEDS: lactobacillus rhamnosus 10,000 MMU CELLS/CAPSULE PO SCH ×2 (07:53→20:27)
[2019-09-07] MEDS: buPROPion SR 100mg tab PO SCH (07:53)
[2019-09-07] MEDS: levoFLOXACIN-Levaquin 750MG/D5 150 ML IV SCH (07:54)
[2019-09-07] MEDS: K and/or MAG REPLACEMENT MC SCH ×2 (07:58→20:00)
[2019-09-07 08:22] LABS: TOTAL CELLS COUNTED 100
[2019-09-07 08:25] LABS: PLATELET ESTIMATE NORMAL; POLYCHROMASIA 1+; TOXIC GRANULATION 1+; TOXIC VACUOLATION 1+
[2019-09-07] MEDS: ondansetron/PF 4mg/2ml inj IV PRN (11:25)
[2019-09-07 11:30] VITALS: BP 137/80
--- NOTE | 2019-09-07 14:31 | NUR ---
Appetite is good, eating well, 75% average PO Intake. Admitted with pneumonia, sepsis, right pleural effusion. Has increased protein needs r/t PNA and sepsis and is meeting needs with PO diet, no nutrition intervention needed at this time. Will continue to follow. Recommend: 1. continue heart healthy, carb controlled diet 2. continue bowel care as needed 3. weight per rx 4. monitor appetite and PO intake and need for ONS if suboptimal PO intake Addendum: 09/07/19 at [address] Amended: Links added.
[2019-09-07] MEDS: baclofen 10mg tablet PO PRN ×2 (15:18→22:37)
[2019-09-07 18:00] VITALS: BP 123/53
--- NOTE | 2019-09-07 18:18 | NUR ---
Problems reprioritized. Patient report given, questions answered & plan of care reviewed with SUSU Barber.
[2019-09-07] MEDS: nicotine 14mg patch - 24hr TD SCH (20:27)
[2019-09-08] VITALS: BP 123/55
[2019-09-08] MEDS: acetaminophen 325mg tablet PO PRN ×2 (01:18→21:00)
--- NOTE | 2019-09-08 06:27 | NUR ---
Problems reprioritized. Patient report given, questions answered & plan of care reviewed with Urvashi RN.
[2019-09-08 08:00] VITALS: BP 118/70
[2019-09-08] MEDS: K and/or MAG REPLACEMENT MC SCH ×2 (08:00→19:53)
[2019-09-08] MEDS: levoFLOXACIN-Levaquin 750MG/D5 150 ML IV SCH (08:27)
[2019-09-08] MEDS: lactobacillus rhamnosus 10,000 MMU CELLS/CAPSULE PO SCH ×2 (08:28→19:57)
[2019-09-08] MEDS: buPROPion SR 100mg tab PO SCH (08:28)
[2019-09-08] MEDS: nicotine 14mg patch - 24hr TD SCH (08:28)
[2019-09-08 12:00] VITALS: BP 142/74
[2019-09-08 13:20] VITALS: BP 99/61
[2019-09-08 13:39] VITALS: BP 90/55
[2019-09-08] MEDS: baclofen 10mg tablet PO PRN (14:26)
[2019-09-08] MEDS ORDERED: ceFAZolin 1GM/D5W- ADD-VANTAGE 50 ML IV SCH (16:00)
[2019-09-08] MEDS: oxyCODONE/APAP 5-325mg tablet PO PRN ×2 (16:19→22:34)
[2019-09-08 18:00] VITALS: BP 137/90
--- NOTE | 2019-09-08 18:24 | NUR ---
Problems reprioritized. Patient report given, questions answered & plan of care reviewed with SUSU Kang.
--- NOTE | 2019-09-08 18:40 | NUR ---
Patient in room [facility] 346. I have received report from Urvashi CRISTOBAL and had the opportunity to ask questions and assume patient care. Patient having dinner and shows no sign of distress.
[2019-09-09 00:13] VITALS: BP 108/62
[2019-09-09] MEDS: cefazolin/dext.iso 2gm/100ml 100 ML IV SCH ×3 (00:20→15:15)
[2019-09-09] MEDS: ondansetron/PF 4mg/2ml inj IV PRN (01:19)
[2019-09-09] MEDS: acetaminophen 325mg tablet PO PRN (04:09)
--- NOTE | 2019-09-09 06:33 | NUR ---
Problems reprioritized. Patient report given, questions answered & plan of care reviewed with Urvashi RN. Patient feeling much better and the chest tube draining minimal output.
[2019-09-09 07:01] VITALS: BP 105/57
[2019-09-09] MEDS: buPROPion SR 100mg tab PO SCH (07:17)
[2019-09-09] MEDS: nicotine 14mg patch - 24hr TD SCH (07:17)
[2019-09-09] MEDS: oxyCODONE/APAP 5-325mg tablet PO PRN ×3 (07:17→21:09)
[2019-09-09] MEDS: lactobacillus rhamnosus 10,000 MMU CELLS/CAPSULE PO SCH ×2 (07:18→21:08)
[2019-09-09] MEDS: K and/or MAG REPLACEMENT MC SCH ×2 (08:00→20:00)
[2019-09-09 09:01] LABS: BASOPHILS % (AUTO) 0.3 % (0-1); EOSINOPHILS # (AUTO) 0.1 X10'3 (0-0.9); EOSINOPHILS % (AUTO) 1.2 % (0-6); HEMATOCRIT 39.6 % (35.0-45.0); HEMOGLOBIN 13.8 g/dl (12.0-16.0); LYMPHOCYTES # (AUTO) 0.8 X10'3 (1.1-4.8); LYMPHOCYTES % (AUTO) 7.6 % (21-51); MEAN CORPUSCULAR HEMOGLOBIN 33.7 PG (27.0-31.0); MEAN CORPUSCULAR HGB CONC 34.8 g/dL (33.0-36.5); MEAN CORPUSCULAR VOLUME 96.8 FL (78-98); MEAN PLATELET VOLUME 7.8 FL (7.4-10.4); MONOCYTES # (AUTO) 0.4 X10'3 (0-0.9); MONOCYTES % (AUTO) 3.6 % (2-12); NEUTROPHILS # (AUTO) 9.1 X10'3 (1.8-7.7); NEUTROPHILS % (AUTO) 87.3 % (42-75); PLATELET COUNT 217 X10'3 (140-440); RED BLOOD COUNT 4.09 X10'6 (4.20-5.60); RED CELL DISTRIBUTION WIDTH 14.3 % (11.5-14.5); WHITE BLOOD COUNT 10.5 X10'3 (4.5-11.0)
--- NOTE | 2019-09-09 11:31 | NUR ---
Reassessment: Pt continues meeting nutrient needs with 75-100% PO intake of meals. Pt s/p thoracentesis 09/04 with 500 cc fluid removed. Sepsis score 0 per physical assessment. LBM 09/08. Pt receiving Zofran PRN for nausea. No nutrition intervention warranted at this time. Will continue to follow. Recommend: 1. continue heart healthy, carb controlled diet 2. continue bowel care as needed 3. weight per rx 4. monitor appetite and PO intake and need for ONS if suboptimal PO intake Addendum: 09/09/19 at [address] Amended: Links added.
[2019-09-09 11:35] VITALS: BP 112/53
[2019-09-09 18:00] VITALS: BP 114/64
--- NOTE | 2019-09-09 18:35 | NUR ---
Problems reprioritized. Patient report given, questions answered & plan of care reviewed with SUSU Myles.
--- NOTE | 2019-09-09 18:45 | NUR ---
Problems reprioritized. Patient report given, questions answered & plan of care reviewed with Urvashi RN .
[2019-09-10] VITALS: BP 109/57
[2019-09-10] MEDS: cefazolin/dext.iso 2gm/100ml 100 ML IV SCH ×4 (00:31→23:25)
[2019-09-10] MEDS: oxyCODONE/APAP 5-325mg tablet PO PRN ×3 (03:52→19:32)
--- NOTE | 2019-09-10 06:42 | NUR ---
Patient in room [facility] 346. I have received report from Shar CRISTOBAL and had the opportunity to ask questions and assume patient care.
--- NOTE | 2019-09-10 06:54 | NUR ---
Problems reprioritized. Patient report given, questions answered & plan of care reviewed with Noris Randall .
[2019-09-10 07:00] VITALS: BP 101/54
[2019-09-10] MEDS: buPROPion SR 100mg tab PO SCH (07:27)
[2019-09-10] MEDS: nicotine 14mg patch - 24hr TD SCH (07:27)
[2019-09-10] MEDS: lactobacillus rhamnosus 10,000 MMU CELLS/CAPSULE PO SCH ×2 (07:27→19:38)
[2019-09-10] MEDS: K and/or MAG REPLACEMENT MC SCH ×2 (08:00→20:00)
[2019-09-10 11:00] VITALS: BP 122/74
--- NOTE | 2019-09-10 18:09 | NUR ---
patient up and about ad jessica ambulated in hallway with minimal assistance 1200ft. Minimal drainage from Chest tube. Given percocet for pain with effect. Seen by Dr France, will be for PICC placement in am for retirement ABX therapy. Report given to Walker CRISTOBAL
[2019-09-10 18:50] VITALS: BP 99/52
[2019-09-10] MEDS: acetaminophen 325mg tablet PO PRN (22:12)
[2019-09-10 23:00] VITALS: BP 113/67
[2019-09-11] MEDS: oxyCODONE/APAP 5-325mg tablet PO PRN ×3 (01:26→17:16)
--- NOTE | 2019-09-11 06:34 | NUR ---
Problems reprioritized. Patient report given, questions answered & plan of care reviewed with FRANCY. Addendum: 09/11/19 at 0635 by Joaquín Garcia RN Amended: Links added.
--- NOTE | 2019-09-11 06:40 | NUR ---
Patient in room [facility] 346. I have received report from JI CRISTOBAL and had the opportunity to ask questions and assume patient care.
[2019-09-11 07:08] VITALS: BP 98/54
[2019-09-11] MEDS: K and/or MAG REPLACEMENT MC SCH ×2 (08:00→20:00)
[2019-09-11] MEDS: buPROPion SR 100mg tab PO SCH (08:02)
[2019-09-11] MEDS: lactobacillus rhamnosus 10,000 MMU CELLS/CAPSULE PO SCH ×2 (08:02→21:10)
[2019-09-11] MEDS: cefazolin/dext.iso 2gm/100ml 100 ML IV SCH ×3 (08:02→23:45)
[2019-09-11] MEDS: nicotine 14mg patch - 24hr TD SCH (08:03)
[2019-09-11] MEDS ORDERED: tPA-cathflo 2mg/2ml IV flush 4 MG in normal saline 100ml IV soln 50 ML ICATH ONE (09:55)
[2019-09-11 12:02] VITALS: BP 112/71
--- NOTE | 2019-09-11 12:30 | NUR ---
[facility] Line LOT# [id number] REF# [id number] EXP: 09/05/2020
[2019-09-11] MEDS: baclofen 10mg tablet PO PRN ×2 (15:18→21:10)
--- NOTE | 2019-09-11 15:36 | NUR ---
patient seen by Dr Brown, Chest xray ordered , patients CT clamped following IR placing Activase cath flow. Re opened at 1500hrs. 250mls serosang drainage observed. patient complaining of muscle spasms. Given Baclofen with some relief. All other cares given. PICC line placed by Yaneth CRISTOBAL. Patient tolerated procedure.
--- NOTE | 2019-09-11 16:20 | NUR ---
patient continued to complain of muscle spasms, IR called suggested clamping chest tube tube for an hour. If symptoms persist to page DR Ochoa. Tele called to report PICC induced SVT. patient also was bent over on left side. patient repositioned. Tele called back patient at this time is in Sinus Rhythm. will continue to monitor.PICC Nurse paged.
--- NOTE | 2019-09-11 17:18 | NUR ---
picc nurse called after chest xray to say PICC was in perfect condition. Patient appears much more settled. will unclamp CT @ 1730, and monitor. Percocet given for generaized pain.
--- NOTE | 2019-09-11 18:04 | NUR ---
CT unclamped, patient c/o severe spasms immediately. DR Godfrey called. stated to take patient off suction, unclamp and allow to drain to water seal . But can clamp tube if necessary for patients comfort.
--- NOTE | 2019-09-11 18:46 | NUR ---
Problems reprioritized. Patient report given, questions answered & plan of care reviewed with Josette CRISTOBAL.
--- NOTE | 2019-09-11 18:47 | NUR ---
Patient in room [facility] 346. I have received report from FRANCY CRISTOBAL and had the opportunity to ask questions and assume patient care.
[2019-09-11 20:00] VITALS: BP 98/51
[2019-09-12] VITALS: BP 99/54
[2019-09-12] MEDS: oxyCODONE/APAP 5-325mg tablet PO PRN ×3 (03:33→19:53)
--- NOTE | 2019-09-12 06:30 | NUR ---
Problems reprioritized. Patient report given, questions answered & plan of care reviewed with MONALISA CRISTOBAL.
--- NOTE | 2019-09-12 06:58 | NUR ---
Patient in room [facility] 346. I have received report from Bere Blackburn RN and had the opportunity to ask questions and assume patient care.
[2019-09-12] MEDS: cefazolin/dext.iso 2gm/100ml 100 ML IV SCH ×2 (07:49→16:24)
[2019-09-12] MEDS: buPROPion SR 100mg tab PO SCH (07:50)
[2019-09-12] MEDS: lactobacillus rhamnosus 10,000 MMU CELLS/CAPSULE PO SCH ×2 (07:50→19:52)
[2019-09-12] MEDS: nicotine 14mg patch - 24hr TD SCH (07:50)
[2019-09-12 08:00] VITALS: BP 120/63
[2019-09-12] MEDS: K and/or MAG REPLACEMENT MC SCH ×2 (08:00→19:56)
[2019-09-12] MEDS ORDERED: tPA-cathflo 2mg/2ml IV flush 4 MG in normal saline 100ml IV soln 50 ML ICATH ONE (09:35)
[2019-09-12 11:46] VITALS: BP 106/41
--- NOTE | 2019-09-12 18:47 | NUR ---
Problems reprioritized. Patient report given, questions answered & plan of care reviewed with Bere Blackburn RN.
--- NOTE | 2019-09-12 18:48 | NUR ---
Patient in room [facility] 346. I have received report from MONALISA CRISTOBAL and had the opportunity to ask questions and assume patient care.
[2019-09-12 20:00] VITALS: BP 100/69
[2019-09-13] VITALS: BP 112/61
[2019-09-13] MEDS: cefazolin/dext.iso 2gm/100ml 100 ML IV SCH ×3 (00:28→16:16)
[2019-09-13] MEDS: oxyCODONE/APAP 5-325mg tablet PO PRN ×3 (03:36→21:17)
--- NOTE | 2019-09-13 06:20 | NUR ---
Problems reprioritized. Patient report given, questions answered & plan of care reviewed with MONALISA CRISTOBAL.
--- NOTE | 2019-09-13 06:33 | NUR ---
Patient in room [facility] 346. I have received report from Bere Blackburn RN and had the opportunity to ask questions and assume patient care.
[2019-09-13] MEDS: ondansetron/PF 4mg/2ml inj IV PRN (07:42)
[2019-09-13] MEDS: lactobacillus rhamnosus 10,000 MMU CELLS/CAPSULE PO SCH ×2 (07:46→21:17)
[2019-09-13] MEDS: nicotine 14mg patch - 24hr TD SCH (07:51)
[2019-09-13] MEDS: heparin, porcine 5000 units/ml vial SQ SCH ×2 (07:55→20:00)
[2019-09-13 08:00] VITALS: BP 105/55
[2019-09-13] MEDS: buPROPion SR 100mg tab PO SCH (08:00)
[2019-09-13] MEDS: K and/or MAG REPLACEMENT MC SCH ×2 (08:00→19:19)
[2019-09-13 11:40] VITALS: BP 116/66
--- NOTE | 2019-09-13 13:59 | NUR ---
Reassessment: Pt continues meeting nutrient needs as pt with no changes in PO intake since las RD assessment. LBM 09/11. No nutrition intervention warranted at this time. Will continue to follow. Recommend: 1. continue heart healthy, carb controlled diet 2. continue bowel care as needed 3. weight per rx 4. bowel care PRN Addendum: 09/13/19 at [address] Amended: Links added.
--- NOTE | 2019-09-13 18:44 | NUR ---
Problems reprioritized. Patient report given, questions answered & plan of care reviewed with Crissy CRISTOBAL.
[2019-09-13 20:00] VITALS: BP 122/50
[2019-09-14] VITALS: BP 113/76
[2019-09-14] MEDS: cefazolin/dext.iso 2gm/100ml 100 ML IV SCH ×3 (00:29→16:22)
[2019-09-14] MEDS: oxyCODONE/APAP 5-325mg tablet PO PRN ×3 (04:50→20:04)
--- NOTE | 2019-09-14 06:39 | NUR ---
Patient in room [facility] 346. I have received report from Crissy CRISTOBAL and had the opportunity to ask questions and assume patient care. Chest tube was removed yesterday morning. dressing intact, pt has not c/o SOB or discomfort.
--- NOTE | 2019-09-14 06:42 | NUR ---
Problems reprioritized. Patient report given, questions answered & plan of care reviewed with Ken CRISTOBAL.
[2019-09-14] MEDS: heparin, porcine 5000 units/ml vial SQ SCH ×2 (07:25→21:02)
[2019-09-14] MEDS: buPROPion SR 100mg tab PO SCH (07:25)
[2019-09-14] MEDS: lactobacillus rhamnosus 10,000 MMU CELLS/CAPSULE PO SCH ×2 (07:25→20:04)
[2019-09-14] MEDS: nicotine 14mg patch - 24hr TD SCH (07:26)
[2019-09-14 08:00] VITALS: BP 111/79
[2019-09-14] MEDS: K and/or MAG REPLACEMENT MC SCH ×2 (08:00→19:40)
[2019-09-14 11:03] VITALS: BP 102/68
[2019-09-14] MEDS ORDERED: nicotine 14mg patch - 24hr TD ONE (17:25)
[2019-09-14 18:00] VITALS: BP 113/58
--- NOTE | 2019-09-14 19:02 | NUR ---
Patient in room [facility] 346. I have received report from SUSU Anne and had the opportunity to ask questions and assume patient care.
--- NOTE | 2019-09-14 19:19 | NUR ---
Problems reprioritized. Patient report given, questions answered & plan of care reviewed with Anna CRISTOBAL.
[2019-09-15] VITALS (15 sets, daily range): BP systolic 93–126; BP diastolic 41–76
[2019-09-15] MEDS: cefazolin/dext.iso 2gm/100ml 100 ML IV SCH ×3 (00:12→16:28)
[2019-09-15] MEDS: oxyCODONE/APAP 5-325mg tablet PO PRN ×3 (03:59→20:27)
[2019-09-15] MEDS: ondansetron/PF 4mg/2ml inj IV PRN (04:07)
--- NOTE | 2019-09-15 06:28 | NUR ---
Problems reprioritized. Patient report given, questions answered & plan of care reviewed with SUSU Singh.
[2019-09-15] MEDS: K and/or MAG REPLACEMENT MC SCH ×2 (07:44→20:00)
[2019-09-15] MEDS: buPROPion SR 100mg tab PO SCH (07:44)
[2019-09-15] MEDS: lactobacillus rhamnosus 10,000 MMU CELLS/CAPSULE PO SCH ×2 (07:44→20:25)
[2019-09-15] MEDS: heparin, porcine 5000 units/ml vial SQ SCH ×2 (07:45→20:29)
[2019-09-15] MEDS: nicotine 14mg patch - 24hr TD SCH (11:41)
--- NOTE | 2019-09-15 12:34 | NUR ---
aware heparin was held this AM. Pt. presumed to go into a VATS surgery after surgeon Paty assesses and consults.
[2019-09-15 13:23] LABS: BASOPHILS % (AUTO) 0.7 % (0-1); EOSINOPHILS # (AUTO) 0.1 X10'3 (0-0.9); EOSINOPHILS % (AUTO) 1.3 % (0-6); HEMATOCRIT 38.3 % (35.0-45.0); HEMOGLOBIN 13.1 g/dl (12.0-16.0); LYMPHOCYTES # (AUTO) 1.2 X10'3 (1.1-4.8); LYMPHOCYTES % (AUTO) 18.8 % (21-51); MEAN CORPUSCULAR HEMOGLOBIN 33.6 PG (27.0-31.0); MEAN CORPUSCULAR HGB CONC 34.2 g/dL (33.0-36.5); MEAN PLATELET VOLUME 7.2 FL (7.4-10.4); MONOCYTES # (AUTO) 0.6 X10'3 (0-0.9); MONOCYTES % (AUTO) 9.8 % (2-12); NEUTROPHILS # (AUTO) 4.4 X10'3 (1.8-7.7); NEUTROPHILS % (AUTO) 69.4 % (42-75); PLATELET COUNT 308 X10'3 (140-440); RED BLOOD COUNT 3.91 X10'6 (4.20-5.60); WHITE BLOOD COUNT 6.4 X10'3 (4.5-11.0)
[2019-09-15 13:37] LABS: ALANINE AMINOTRANSFERASE 23 U/L (12-78); ALBUMIN 2.4 G/DL (3.4-5.0); ALBUMIN/GLOBULIN RATIO 0.4 (1.1-1.5); ALKALINE PHOSPHATASE 113 IU/L (46-116); ANION GAP 6 (8-16); ASPARTATE AMINO TRANSFERASE 38 U/L (10-37); BILIRUBIN,TOTAL 0.4 MG/DL (0.1-1.0); BLOOD UREA NITROGEN 14 MG/DL (7-18); BUN/CREATININE RATIO 20.6 (6.6-38.0); CALCIUM 8.9 MG/DL (8.5-10.1); CHLORIDE 102 MMOL/L (99-107); CREATININE 0.68 MG/DL (0.40-0.90); GLUCOSE 80 MG/DL (70-104); POTASSIUM 4.4 MMOL/L (3.5-5.1); SODIUM 137 MMOL/L (135-145); TOTAL CARBON DIOXIDE 28.6 MMOL/L (24-32); TOTAL PROTEIN 8.3 G/DL (6.4-8.2); eGFR 89 ML/MIN
[2019-09-15 13:42] LABS: PRE OP PARTIAL THROMB. TIME 27 SECONDS (22-32)
[2019-09-15] MEDS ORDERED: fentaNYL/PF 50MCG/1 ML 2ML syringe ONE (15:05)
[2019-09-15] MEDS ORDERED: tPA-cathflo 2 MG/2 ml IV flush ONE (15:40)
--- NOTE | 2019-09-15 17:30 | NUR ---
Pt. unclamped and stopper open to R chest tube, malfunction in room suction. CHarge and engineering immediately notified. Suction repaired. Pt. to low wall suction, chest tube bellow working properly, no leaks noted although no output at this time. Oncoming RN will be notified.
--- NOTE | 2019-09-15 18:21 | NUR ---
PAGER ID: [phone] MESSAGE: Slime [facility] 346B Cell count and chemistry on fluid sample taken from R lung during todays chest tube placement will not be able to be completed. Call lab or surgical if any questions. Samantha Smith paged regarding lab call
--- NOTE | 2019-09-15 19:14 | NUR ---
GAVE REPORT TO MAGALIE CRISTOBAL
[2019-09-16] MEDS: cefazolin/dext.iso 2gm/100ml 100 ML IV SCH ×3 (00:04→15:14)
[2019-09-16] MEDS: oxyCODONE/APAP 5-325mg tablet PO PRN ×4 (00:35→19:47)
[2019-09-16 07:27] VITALS: BP 120/97
[2019-09-16] MEDS: K and/or MAG REPLACEMENT MC SCH ×2 (08:00→20:00)
[2019-09-16] MEDS: lactobacillus rhamnosus 10,000 MMU CELLS/CAPSULE PO SCH ×2 (09:06→19:45)
[2019-09-16] MEDS: buPROPion SR 100mg tab PO SCH (09:06)
[2019-09-16] MEDS: heparin, porcine 5000 units/ml vial SQ SCH ×2 (09:07→19:45)
[2019-09-16] MEDS: nicotine 14mg patch - 24hr TD SCH (09:09)
[2019-09-16 11:00] VITALS: BP 117/60
--- NOTE | 2019-09-16 16:00 | NUR ---
Suction level to R chest tube adjusted to 30.
[2019-09-16 18:00] VITALS: BP 123/64
--- NOTE | 2019-09-16 18:09 | NUR ---
PATIENT IN ROOM WITH RESTING WITH RISE AND FALL OF CHEST, REPORT GIVEN TO NARESH CRISTOBAL. CHEST TUBE ON AND WORKING PROPERLY ON WALL SUCTION TO 30 H20 SUCTION. Addendum: 09/16/19 at 1848 by Samantha Palacios RN Report given to Royal CRISTOBAL.
--- NOTE | 2019-09-16 18:47 | NUR ---
PATIENT IN ROOM WITH RESTING WITH RISE AND FALL OF CHEST, REPORT GIVEN TO MICAELA CRISTOBAL.
[2019-09-17] VITALS: BP 96/52
[2019-09-17] MEDS: oxyCODONE/APAP 5-325mg tablet PO PRN ×3 (00:30→15:04)
[2019-09-17] MEDS: cefazolin/dext.iso 2gm/100ml 100 ML IV SCH ×3 (00:30→15:04)
--- NOTE | 2019-09-17 06:20 | NUR ---
Patient in room [facility] 346. I have received report from SUSU Paige and had the opportunity to ask questions and assume patient care.
[2019-09-17] MEDS: K and/or MAG REPLACEMENT MC SCH ×2 (07:22→19:33)
[2019-09-17 07:23] VITALS: BP 95/52
[2019-09-17] MEDS: heparin, porcine 5000 units/ml vial SQ SCH ×2 (08:00→19:34)
[2019-09-17] MEDS: lactobacillus rhamnosus 10,000 MMU CELLS/CAPSULE PO SCH ×2 (08:13→19:33)
[2019-09-17] MEDS: buPROPion SR 100mg tab PO SCH (08:13)
[2019-09-17 08:15] VITALS: BP 105/49
[2019-09-17] MEDS: nicotine 14mg patch - 24hr TD SCH (08:19)
[2019-09-17 11:00] VITALS: BP 111/51
--- NOTE | 2019-09-17 18:16 | NUR ---
Problems reprioritized. Patient report given, questions answered & plan of care reviewed with SUSU Mckinnon.
--- NOTE | 2019-09-17 18:25 | NUR ---
Patient in room [facility] 346. I have received report from SUSU Domínguez and had the opportunity to ask questions and assume patient care. Addendum: 09/17/19 at 1825 by Daisy Rogers RN Amended: Links added.
[2019-09-17 19:00] VITALS: BP 118/71
[2019-09-18] VITALS: BP 95/53
[2019-09-18] MEDS: cefazolin/dext.iso 2gm/100ml 100 ML IV SCH ×3 (00:40→15:56)
[2019-09-18] MEDS: oxyCODONE/APAP 5-325mg tablet PO PRN ×3 (00:41→21:10)
--- NOTE | 2019-09-18 06:20 | NUR ---
Patient in room [facility] 346. I have received report from SUSU Mckinnon and had the opportunity to ask questions and assume patient care.
--- NOTE | 2019-09-18 06:21 | NUR ---
Problems reprioritized. Patient report given, questions answered & plan of care reviewed with SUSU VALLES. Addendum: 09/18/19 at 0621 by Daisy Rogers RN Amended: Links added.
[2019-09-18 07:06] VITALS: BP 122/53
[2019-09-18] MEDS: K and/or MAG REPLACEMENT MC SCH ×2 (07:07→19:59)
[2019-09-18] MEDS: lactobacillus rhamnosus 10,000 MMU CELLS/CAPSULE PO SCH ×2 (08:22→20:16)
[2019-09-18] MEDS: buPROPion SR 100mg tab PO SCH (08:22)
[2019-09-18] MEDS: heparin, porcine 5000 units/ml vial SQ SCH ×2 (08:22→20:16)
[2019-09-18] MEDS: nicotine 14mg patch - 24hr TD SCH (08:23)
[2019-09-18 11:32] VITALS: BP 109/63
--- NOTE | 2019-09-18 16:57 | NUR ---
F/u: Pt PO 100% meals since admit meeting needs. LBM 09/17. Pt has R CT in place given empyema hoping to resolve without needing OR per MD note. No nutrition concerns at this time. Will continue to monitor. Recommend: 1. continue heart healthy, carb controlled diet 2. continue bowel care as needed 3. weight per rx 4. bowel care PRN Addendum: 09/18/19 at [address] Amended: Links added.
--- NOTE | 2019-09-18 18:10 | NUR ---
Problems reprioritized. Patient report given, questions answered & plan of care reviewed with SUSU Mckinnon.
--- NOTE | 2019-09-18 18:14 | NUR ---
Patient in room [facility] 346. I have received report from SUSU Domínguez and had the opportunity to ask questions and assume patient care. Addendum: 09/18/19 at 1816 by Daisy Rogers RN Amended: Links added.
[2019-09-18 20:00] VITALS: BP 108/60
[2019-09-19] VITALS: BP 99/50
--- NOTE | 2019-09-19 00:17 | NUR ---
PATIENTS IV ABT SCHEDULED AT MIDNIGHT NOT AVAILABLE AT THIS TIME PER PHARMACIST CEEMA
[2019-09-19] MEDS: cefazolin/dext.iso 2gm/100ml 100 ML IV SCH ×2 (00:50→07:47)
--- NOTE | 2019-09-19 06:20 | NUR ---
Problems reprioritized. Patient report given, questions answered & plan of care reviewed with SUSU Singh. Addendum: 09/19/19 at 0620 by Yu Aragon RN Amended: Links added.
[2019-09-19 07:23] VITALS: BP 105/47
[2019-09-19] MEDS: lactobacillus rhamnosus 10,000 MMU CELLS/CAPSULE PO SCH (07:47)
[2019-09-19] MEDS: buPROPion SR 100mg tab PO SCH (07:47)
[2019-09-19] MEDS: nicotine 14mg patch - 24hr TD SCH (07:48)
[2019-09-19] MEDS: oxyCODONE/APAP 5-325mg tablet PO PRN (07:49)
[2019-09-19] MEDS: K and/or MAG REPLACEMENT MC SCH (07:49)
[2019-09-19] MEDS: heparin, porcine 5000 units/ml vial SQ SCH (07:50)
[2019-09-19 12:00] VITALS: BP 87/42
[2019-09-19] MEDS ORDERED: LACT1CAP26 PO (12:21)
--- NOTE | 2019-09-19 12:39 | NUR ---
Paged MD Newman regarding clarification of discharge.
--- NOTE | 2019-09-19 13:20 | NUR ---
Called [email or web address]. No answer. Will continue to await reply.
--- NOTE | 2019-09-19 15:03 | NUR ---
Pt. states she does not want home medications stored in pharmacy. Pharmacy called and meds will be discarded.
--- NOTE | 2019-09-19 15:16 | NUR ---
Paty call surgical floor and oked pt. discharge. Case management aware. Elizondo expecting pt. before 4pm to educate pt. and give pt. infusion balls of antibiotics.
--- NOTE | 2019-09-19 15:20 | NUR ---
Pt. discharged in a stable condition. Knows to go to [facility] to cloth picker Percocet and probiotic, and then to [facility] before 4 pm to get antibiotics IV. They will educate her at [facility] on infusions. Reviewed all discharge paperwork with pt. IV DC'd, tele DC'd cleaned and returned. Pt. left with all of her belongings.
== END 2019-09-19 15:19 | disposition home IV services (08) | DRG 720 ==
LOC: ER 13:05 → ED HOLD 20:44 → SUR 3N 22:00
PROVIDERS: ADMIT Hospitalist; ATTEND Family Medicine
PROC: 0W993ZZ Drainage of Right Pleural Cavity, Percutaneous Approach (ICD-10-PCS; principal; 2019-09-04)
PROC: 0W9930Z Drainage of Right Pleural Cavity with Drainage Device, Percutaneous Approach (ICD-10-PCS; 2019-09-08)
PROC: 02HV33Z Insertion of Infusion Device into Superior Vena Cava, Percutaneous Approach (ICD-10-PCS; 2019-09-11)
PROC: B548ZZA Ultrasonography of Superior Vena Cava, Guidance (ICD-10-PCS; 2019-09-11)
PROC: 0W9930Z Drainage of Right Pleural Cavity with Drainage Device, Percutaneous Approach (ICD-10-PCS; 2019-09-15)
DX: A41.01 Sepsis due to Methicillin susceptible Staphylococcus aureus (principal); J86.9 Pyothorax without fistula; J18.9 Pneumonia, unspecified organism; J91.8 Pleural effusion in other conditions classified elsewhere; R09.02 Hypoxemia; E11.9 Type 2 diabetes mellitus without complications; F17.200 Nicotine dependence, unspecified, uncomplicated; F32.9 Major depressive disorder, single episode, unspecified; G89.4 Chronic pain syndrome; M00.9 Pyogenic arthritis, unspecified; Z59.0 Homelessness; Z83.3 Family history of diabetes mellitus; Z85.41 Personal history of malignant neoplasm of cervix uteri; Z88.5 Allergy status to narcotic agent; Z88.8 Allergy status to other drugs, medicaments and biological substances; Z79.899 Other long term (current) drug therapy
CPT/HCPCS: 32555; 32557; 32561; 36415; 36569; 70491; 71045; 71250; 76937; 80048; 80053; 80202; 81001; 81025; 82945; 82948; 83036; 83605; 83615; 83690; 83735; 84145; 85025; 85610; 85730; 87040; 87070; 87077; 87081; 87088; 87186; 87502; 87503; 89051; 93005; 93306; 96365; 96368; 96372; 96375; 97110; 97116; 97161; 97530; 99285; G0378; J0456; J0690; J0696; J1644; J1650; J1815; J1885; J1956; J2405; J2765; J2997; J3010; J3370; J7030; Q9967

== ENCOUNTER 2020-08-09 10:45 | Day surgery (SDC) | payer MEDICAID ==
[~2020-08-09] VITALS: Ht 162.6 cm; Wt 92.7 kg
[~2020-08-09 10:45] MED LIST changes: +BUPR200T2 PO; -CEPH500C2 PO; -EMOL200L TP; +LACT1CAP26 PO; -METH-360 PO; -NAPR-56 PO; -ONDA4TAB12 PO; -OXYC-134 PO; -SULF1TAB49 PO
[2020-08-09 10:52] VITALS: BP 117/75
[2020-08-09] MEDS ORDERED: fentaNYL/PF 50MCG/1 ML 2ML syringe ONE (11:05)
[2020-08-09] MEDS ORDERED: MIDAZolam 5mg/5ml vial ONE (11:05)
[2020-08-09] MEDS ORDERED: LIDOcaine Viscous 15ml cup ONE (11:05)
[2020-08-09] MEDS ORDERED: BUPR-344 PO (11:17)
[2020-08-09] MEDS ORDERED: HYDR-3686 PO (11:20)
[2020-08-09] MEDS ORDERED: SOFO1TAB2 PO (11:21)
[2020-08-09 11:25] VITALS: BP 117/84
[2020-08-09 11:35] VITALS: BP 113/79
[2020-08-09 11:45] VITALS: BP 112/64
[2020-08-09 11:55] VITALS: BP 111/70
== END 2020-08-09 12:00 | disposition home or self-care (01) ==
LOC: GI LAB 10:45
PROVIDERS: ATTEND Internal Medicine Gastroenterology
DX: K74.60 Unspecified cirrhosis of liver (principal); I85.00 Esophageal varices without bleeding
CPT/HCPCS: 43235; 99152; J2250; J3010; J7040; A4620

== ENCOUNTER 2020-10-24 11:03 | Emergency (ER) | payer MEDICAID ==
[~2020-10-24] VITALS: Ht 160 cm; Wt 90.9 kg
[~2020-10-24 11:03] MED LIST changes: +BUPR-344 PO; -BUPR200T2 PO; +HYDR-3686 PO; +SOFO1TAB2 PO
[2020-10-24] MEDS ORDERED: clindamycin 600mg/D5W 50ml 50 ML IV ONE (11:40)
[2020-10-24] MEDS ORDERED: ondansetron/PF 4mg/2ml inj IV ONE (11:45)
[2020-10-24] MEDS ORDERED: oxyCODONE/APAP 5-325mg tablet PO ONE (11:45)
[2020-10-24] MEDS ORDERED: normal saline 1000ml 1,000 ML IV ONE (11:45)
--- NOTE | 2020-10-24 12:08 | NUR ---
PICC NURSE AT BEDSIDE
[2020-10-24] MEDS ORDERED: CLIN150C8 PO (13:05)
[2020-10-24] MEDS ORDERED: OXYC-145 PO (13:05)
[2020-10-24] MEDS ORDERED: ONDA4TAB6 PO (13:09)
[2020-10-24 14:23] VITALS: BP 121/69
== END 2020-10-24 14:25 | disposition home or self-care (01) ==
LOC: ER 11:04
DX: L03.116 Cellulitis of left lower limb (principal); M79.605 Pain in left leg; E11.9 Type 2 diabetes mellitus without complications; Z85.41 Personal history of malignant neoplasm of cervix uteri; Z98.890 Other specified postprocedural states; Z56.0 Unemployment, unspecified; Z88.5 Allergy status to narcotic agent; Z88.6 Allergy status to analgesic agent; Z88.8 Allergy status to other drugs, medicaments and biological substances; Z79.2 Long term (current) use of antibiotics; Z79.899 Other long term (current) drug therapy
CPT/HCPCS: 76937; 93971; 96365; 96375; 99284; J2405; J7030; J3490

== ENCOUNTER 2020-10-28 10:47 | Emergency (ER) | payer MEDICAID ==
[~2020-10-28] VITALS: Ht 160 cm; Wt 90.9 kg
[~2020-10-28 10:47] MED LIST changes: +CLIN150C8 PO; +ONDA4TAB6 PO; +OXYC-145 PO
[2020-10-28] MEDS ORDERED: ketorolac tromethamine 15mg/ml inj. IM ONE (12:00)
--- NOTE | 2020-10-28 12:17 | NUR ---
DISCUSSED PLAN OF CARE WITH PA, NO IV NEEDED
[2020-10-28 13:23] LABS: BASOPHILS # (AUTO) 0.1 X10'3 (0-0.2); BASOPHILS % (AUTO) 0.7 % (0-1); EOSINOPHILS # (AUTO) 0.2 X10'3 (0-0.9); EOSINOPHILS % (AUTO) 2.2 % (0-6); HEMATOCRIT 41.7 % (35.0-45.0); HEMOGLOBIN 14.1 g/dl (12.0-16.0); LYMPHOCYTES # (AUTO) 1.2 X10'3 (1.1-4.8); MEAN CORPUSCULAR HEMOGLOBIN 33.9 PG (27.0-31.0); MEAN CORPUSCULAR HGB CONC 33.9 g/dL (33.0-36.5); MEAN CORPUSCULAR VOLUME 99.8 FL (78-98); MEAN PLATELET VOLUME 7.7 FL (7.4-10.4); MONOCYTES # (AUTO) 1.8 X10'3 (0-0.9); MONOCYTES % (AUTO) 20.4 % (2-12); NEUTROPHILS # (AUTO) 5.6 X10'3 (1.8-7.7); NEUTROPHILS % (AUTO) 62.7 % (42-75); PLATELET COUNT 171 X10'3 (140-440); RED BLOOD COUNT 4.18 X10'6 (4.20-5.60); RED CELL DISTRIBUTION WIDTH 14.4 % (11.5-14.5); WHITE BLOOD COUNT 8.9 X10'3 (4.5-11.0)
[2020-10-28 13:35] LABS: ALANINE AMINOTRANSFERASE 55 U/L (12-78); ALBUMIN 2.6 G/DL (3.4-5.0); ALBUMIN/GLOBULIN RATIO 0.5 (1.1-1.5); ALKALINE PHOSPHATASE 159 IU/L (46-116); ANION GAP 5 (8-16); ASPARTATE AMINO TRANSFERASE 58 U/L (10-37); BILIRUBIN,TOTAL 0.9 MG/DL (0.1-1.0); BLOOD UREA NITROGEN 8 MG/DL (7-18); BUN/CREATININE RATIO 15.4 (6.6-38.0); CALCIUM 9.3 MG/DL (8.5-10.1); CHLORIDE 105 MMOL/L (99-107); CREATININE 0.52 MG/DL (0.40-0.90); GLUCOSE 92 MG/DL (70-104); POTASSIUM 4.4 MMOL/L (3.5-5.1); SODIUM 136 MMOL/L (135-145); TOTAL CARBON DIOXIDE 26.3 MMOL/L (24-32); TOTAL PROTEIN 7.4 G/DL (6.4-8.2); eGFR > 90 ML/MIN
[2020-10-28 13:51] LABS: PLATELET ESTIMATE NORMAL; TOTAL CELLS COUNTED 100
[2020-10-28 13:52] LABS: LARGE PLATELETS FEW
--- NOTE | 2020-10-28 14:36 | NUR ---
PA AWARE OF 79 BLOOD SUGAR PATIENT DRANK 240 ML REGULAR MILK AND ATE 4 OZ YOGURT
[2020-10-28] MEDS ORDERED: DOXY100C43 PO (14:59)
[2020-10-28] MEDS ORDERED: TRAM50TA2 PO (14:59)
[2020-10-28] MEDS ORDERED: CEPH-585 PO (14:59)
[2020-10-28 15:57] VITALS: BP 108/67
== END 2020-10-28 15:59 | disposition home or self-care (01) ==
LOC: ER 10:48
DX: L03.116 Cellulitis of left lower limb (principal); E11.9 Type 2 diabetes mellitus without complications; Z56.0 Unemployment, unspecified; Z88.8 Allergy status to other drugs, medicaments and biological substances; Z87.410 Personal history of cervical dysplasia; Z88.6 Allergy status to analgesic agent; Z79.2 Long term (current) use of antibiotics; Z79.899 Other long term (current) drug therapy
CPT/HCPCS: 36415; 80053; 82948; 85007; 85025; 96372; 99285; J1885

== ENCOUNTER 2021-09-20 15:45 | Emergency (ER) | payer MEDICAID ==
[~2021-09-20] VITALS: Ht 165.1 cm; Wt 90.9 kg
[~2021-09-20 15:45] MED LIST changes: +CEPH-585 PO
[2021-09-20 15:49] VITALS: BP 116/95
[2021-09-20] MEDS ORDERED: AMOX-422 PO (15:54)
== END 2021-09-20 15:58 | disposition home or self-care (01) ==
LOC: ER 15:45
DX: S60.512A Abrasion of left hand, initial encounter (principal); M79.89 Other specified soft tissue disorders; Z85.41 Personal history of malignant neoplasm of cervix uteri; Z98.890 Other specified postprocedural states; Z56.0 Unemployment, unspecified; Z88.6 Allergy status to analgesic agent; Z88.5 Allergy status to narcotic agent; Z88.8 Allergy status to other drugs, medicaments and biological substances; Z79.2 Long term (current) use of antibiotics; Z79.899 Other long term (current) drug therapy; W55.03XA Scratched by cat, initial encounter; Y93.89 Activity, other specified; Y92.89 Other specified places as the place of occurrence of the external cause; Y99.8 Other external cause status
CPT/HCPCS: 99283

== ENCOUNTER 2022-01-11 19:17 | Emergency (ER) | payer MEDICAID ==
[~2022-01-11] VITALS: Ht 166.4 cm; Wt 97.7 kg
[~2022-01-11 19:17] MED LIST changes: -CEPH-585 PO
[2022-01-11 19:27] VITALS: BP 130/67
[2022-01-11 19:45] LABS: BASOPHILS % (AUTO) 0.8 % (0-1); EOSINOPHILS # (AUTO) 0.1 X10'3 (0-0.9); EOSINOPHILS % (AUTO) 3.4 % (0-6); HEMATOCRIT 34.9 % (35.0-45.0); HEMOGLOBIN 11.9 g/dl (12.0-16.0); LYMPHOCYTES % (AUTO) 25.5 % (21-51); MEAN CORPUSCULAR HEMOGLOBIN 34.2 PG (27.0-31.0); MEAN CORPUSCULAR HGB CONC 34.2 g/dL (33.0-36.5); MEAN CORPUSCULAR VOLUME 99.9 FL (78-98); MEAN PLATELET VOLUME 7.8 FL (7.4-10.4); MONOCYTES # (AUTO) 0.4 X10'3 (0-0.9); MONOCYTES % (AUTO) 11.3 % (2-12); NEUTROPHILS # (AUTO) 2.3 X10'3 (1.8-7.7); PLATELET COUNT 128 X10'3 (140-440); RED BLOOD COUNT 3.49 X10'6 (4.20-5.60); RED CELL DISTRIBUTION WIDTH 13.8 % (11.5-14.5); WHITE BLOOD COUNT 3.8 X10'3 (4.5-11.0)
[2022-01-11 20:09] LABS: ALANINE AMINOTRANSFERASE 34 U/L (12-78); ALBUMIN 2.5 G/DL (3.4-5.0); ALBUMIN/GLOBULIN RATIO 0.6 (1.1-1.5); ALKALINE PHOSPHATASE 195 IU/L (46-116); ANION GAP 12 (8-16); BILIRUBIN,TOTAL 0.9 MG/DL (0.1-1.0); BLOOD UREA NITROGEN 11 MG/DL (7-18); BUN/CREATININE RATIO 20.4 (6.6-38.0); CALCIUM 8.2 MG/DL (8.5-10.1); CHLORIDE 106 MMOL/L (99-107); CREATININE 0.54 MG/DL (0.40-0.90); GLUCOSE 105 MG/DL (70-104); LIPASE 193 U/L (73-393); SODIUM 143 MMOL/L (135-145); TOTAL CARBON DIOXIDE 24.7 MMOL/L (24-32); TOTAL PROTEIN 6.7 G/DL (6.4-8.2); eGFR > 90 ML/MIN
[2022-01-11 20:12] LABS: ASPARTATE AMINO TRANSFERASE 48 U/L (10-37); POTASSIUM 4.4 MMOL/L (3.5-5.1)
[2022-01-11 20:41] LABS: CLARITY,URINE CLEAR (Clear); COLOR,URINE YELLOW (Yellow); GLUCOSE, URINE NEGATIVE (Neg); KETONES,URINE NEGATIVE (Neg); LEUKOCYTE ESTERASE ,URINE NEGATIVE (Neg); NITRITES, URINE NEGATIVE (Neg); OCCULT BLOOD,URINE TRACE-INTACT (Neg); PH,URINE 8.5 (4.8-8.0); PROTEIN,URINE NEGATIVE (Neg)
--- NOTE | 2022-01-11 20:47 | NUR ---
PT PRESENTS TO ED WITH COMPLAINTS OF ABDOMINAL PAIN AND VOMITTING XS 2 DAYS. PT REPORTS HX OF HEP C. AAOXS 3. REPORTS NO DIARRHEA DURING THIS TIME. RESP EVEN AND UNLABORED, NO SOB OR CHEST PAIN REPORTED. WILL CONT TO MONITOR THROUGHOUT STAY.
[2022-01-11 20:55] LABS: UA COLLECTION TYPE CLN CATCH MIDSTREAM
[2022-01-11 20:57] LABS: BACTERIA,URINE NONE SEEN /HPF (Neg); MUCUS STRANDS FEW /LPF (Neg); WBC,URINE 0-4 /HPF (0-4)
[2022-01-11 20:58] LABS: SQUAMOUS EPITHELIAL CELL,UR MODERATE /LPF (FEW)
--- NOTE | 2022-01-11 21:15 | NUR ---
IV ATTEMPT XS 3, UNSUCESSFUL
[2022-01-11] MEDS ORDERED: iohexol 300 MG/1 ML 50ml polymer ONE (22:17)
[2022-01-12] MEDS ORDERED: ONDA4TAB12 PO (02:46)
== END 2022-01-12 03:03 | disposition home or self-care (01) ==
LOC: ER 19:17
DX: R11.2 Nausea with vomiting, unspecified (principal); R19.7 Diarrhea, unspecified; R10.11 Right upper quadrant pain; R10.13 Epigastric pain; Z86.19 Personal history of other infectious and parasitic diseases; Z85.41 Personal history of malignant neoplasm of cervix uteri; Z98.890 Other specified postprocedural states; Z56.0 Unemployment, unspecified; Z88.5 Allergy status to narcotic agent; Z88.6 Allergy status to analgesic agent; Z88.8 Allergy status to other drugs, medicaments and biological substances; Z79.899 Other long term (current) drug therapy
CPT/HCPCS: 36415; 74177; 80053; 81001; 83690; 85025; 99285; Q9967

== ENCOUNTER 2022-02-07 18:28 | Emergency (ER) | payer MEDICAID ==
[~2022-02-07] VITALS: Ht 165.1 cm; Wt 100.0 kg
[~2022-02-07 18:28] MED LIST changes: +ONDA4TAB12 PO
[2022-02-07] MEDS ORDERED: ampicillin/sulbac 3gm/NS 100ml 100 ML IV SCH (20:00)
[2022-02-07 20:12] LABS: BASOPHILS % (AUTO) 0.5 % (0-1); EOSINOPHILS # (AUTO) 0.2 X10'3 (0-0.9); EOSINOPHILS % (AUTO) 3.5 % (0-6); HEMATOCRIT 36.6 % (35.0-45.0); HEMOGLOBIN 12.4 g/dl (12.0-16.0); LYMPHOCYTES % (AUTO) 18.3 % (21-51); MEAN CORPUSCULAR HEMOGLOBIN 33.1 PG (27.0-31.0); MEAN CORPUSCULAR HGB CONC 33.9 g/dL (33.0-36.5); MEAN CORPUSCULAR VOLUME 97.5 FL (78-98); MEAN PLATELET VOLUME 7.5 FL (7.4-10.4); MONOCYTES # (AUTO) 0.7 X10'3 (0-0.9); MONOCYTES % (AUTO) 13.3 % (2-12); NEUTROPHILS # (AUTO) 3.5 X10'3 (1.8-7.7); NEUTROPHILS % (AUTO) 64.4 % (42-75); PLATELET COUNT 132 X10'3 (140-440); RED BLOOD COUNT 3.75 X10'6 (4.20-5.60); RED CELL DISTRIBUTION WIDTH 14.3 % (11.5-14.5); WHITE BLOOD COUNT 5.4 X10'3 (4.5-11.0)
[2022-02-07 20:23] LABS: ALANINE AMINOTRANSFERASE 32 U/L (12-78); ALBUMIN 2.7 G/DL (3.4-5.0); ALBUMIN/GLOBULIN RATIO 0.7 (1.1-1.5); ALKALINE PHOSPHATASE 167 IU/L (46-116); ANION GAP 4 (8-16); ASPARTATE AMINO TRANSFERASE 44 U/L (10-37); BILIRUBIN,TOTAL 0.8 MG/DL (0.1-1.0); BLOOD UREA NITROGEN 12 MG/DL (7-18); BUN/CREATININE RATIO 19.4 (6.6-38.0); CALCIUM 8.7 MG/DL (8.5-10.1); CHLORIDE 108 MMOL/L (99-107); CREATININE 0.62 MG/DL (0.40-0.90); GLUCOSE 136 MG/DL (70-104); POTASSIUM 3.9 MMOL/L (3.5-5.1); SODIUM 140 MMOL/L (135-145); TOTAL CARBON DIOXIDE 27.8 MMOL/L (24-32); TOTAL PROTEIN 6.6 G/DL (6.4-8.2); eGFR > 90 ML/MIN
[2022-02-07] MEDS ORDERED: AMOX-117 PO (20:36)
[2022-02-07 20:54] VITALS: BP 115/68
[2022-02-08] MEDS ORDERED: RIBA200T14 PO (19:30)
[2022-02-08] MEDS ORDERED: GABA-530 PO (19:31)
== END 2022-02-07 20:56 | disposition home or self-care (01) ==
LOC: ER 18:29
DX: L03.113 Cellulitis of right upper limb (principal); Z86.19 Personal history of other infectious and parasitic diseases; Z98.890 Other specified postprocedural states; Z56.0 Unemployment, unspecified; Z88.5 Allergy status to narcotic agent; Z88.6 Allergy status to analgesic agent; Z88.8 Allergy status to other drugs, medicaments and biological substances; Z79.899 Other long term (current) drug therapy; W55.01XD Bitten by cat, subsequent encounter
CPT/HCPCS: 36415; 80053; 85025; 96365; 99284; J0295

== ENCOUNTER 2022-02-08 14:31 | Inpatient (IN) | payer MEDICAID ==
[~2022-02-08] VITALS: Ht 165.1 cm; Wt 98.6 kg
[~2022-02-08 14:31] MED LIST changes: +AMOX-117 PO
[2022-02-08] MEDS ORDERED: dexamethasone sod phosphate 10mg/ml inj IV STA (15:29)
[2022-02-08] MEDS ORDERED: ampicillin/sulbac 3gm/NS 100ml 100 ML IV ONE (15:30)
[2022-02-08] MEDS ORDERED: oxyCODONE/APAP 5-325mg tablet PO ONE (15:30)
[2022-02-08] MEDS ORDERED: ondansetron/PF 4mg/2ml inj IV ONE (15:30)
--- NOTE | 2022-02-08 15:59 | NUR ---
po med given
[2022-02-08 16:16] LABS: BASOPHILS % (AUTO) 0.5 % (0-1); EOSINOPHILS # (AUTO) 0.2 X10'3 (0-0.9); EOSINOPHILS % (AUTO) 3.7 % (0-6); HEMATOCRIT 36.9 % (35.0-45.0); HEMOGLOBIN 12.5 g/dl (12.0-16.0); LYMPHOCYTES # (AUTO) 1.1 X10'3 (1.1-4.8); LYMPHOCYTES % (AUTO) 21.2 % (21-51); MEAN CORPUSCULAR HEMOGLOBIN 33.2 PG (27.0-31.0); MEAN CORPUSCULAR HGB CONC 33.9 g/dL (33.0-36.5); MEAN CORPUSCULAR VOLUME 97.8 FL (78-98); MEAN PLATELET VOLUME 7.6 FL (7.4-10.4); MONOCYTES # (AUTO) 0.7 X10'3 (0-0.9); MONOCYTES % (AUTO) 14.1 % (2-12); NEUTROPHILS # (AUTO) 3.2 X10'3 (1.8-7.7); NEUTROPHILS % (AUTO) 60.5 % (42-75); PLATELET COUNT 131 X10'3 (140-440); RED BLOOD COUNT 3.77 X10'6 (4.20-5.60); RED CELL DISTRIBUTION WIDTH 14.1 % (11.5-14.5); WHITE BLOOD COUNT 5.2 X10'3 (4.5-11.0)
[2022-02-08 16:20] LABS: ALANINE AMINOTRANSFERASE 34 U/L (12-78); ALBUMIN 2.5 G/DL (3.4-5.0); ALBUMIN/GLOBULIN RATIO 0.6 (1.1-1.5); ALKALINE PHOSPHATASE 118 IU/L (46-116); ANION GAP 6 (8-16); ASPARTATE AMINO TRANSFERASE 42 U/L (10-37); BILIRUBIN,TOTAL 1.1 MG/DL (0.1-1.0); BLOOD UREA NITROGEN 9 MG/DL (7-18); BUN/CREATININE RATIO 15.3 (6.6-38.0); CALCIUM 8.5 MG/DL (8.5-10.1); CHLORIDE 107 MMOL/L (99-107); CREATININE 0.59 MG/DL (0.40-0.90); GLUCOSE 138 MG/DL (70-104); POTASSIUM 3.8 MMOL/L (3.5-5.1); SODIUM 139 MMOL/L (135-145); TOTAL CARBON DIOXIDE 26.3 MMOL/L (24-32); TOTAL PROTEIN 6.5 G/DL (6.4-8.2); eGFR > 90 ML/MIN
[2022-02-08 17:03] LABS: C-REACTIVE PROTEIN 0.75 MG/DL (0.0-0.5)
[2022-02-08] MEDS ORDERED: ondansetron/PF 4mg/2ml inj IV PRN (17:30)
[2022-02-08] MEDS ORDERED: POTASSIUM BICARB 20meq eff tab 20 MEQ TABLET.EFF PO PRN ×2 (17:30)
[2022-02-08] MEDS ORDERED: magnesium hydroxide 30ml (MOM) UD suspension PO PRN (17:30)
[2022-02-08] MEDS ORDERED: magnesium 4gm in 100ml NS 100 ML IV PRN (17:30)
[2022-02-08] MEDS ORDERED: acetaminophen 325mg tablet PO PRN (17:30)
[2022-02-08] MEDS ORDERED: magnesium 2GM in 50ml NS 50 ML IV PRN (17:30)
[2022-02-08] MEDS ORDERED: mag hydrox/Alum hydrox/simeth 30ml oral suspension PO PRN (17:30)
[2022-02-08] MEDS ORDERED: potassium CL 10mEq/100ml bag 100 ML IV PRN (17:30)
[2022-02-08] MEDS ORDERED: magnesium Cl slow-release 64mg tablet PO PRN (17:30)
[2022-02-08] MEDS ORDERED: ALBUTEROL INHALER 1 PUFF/90 MCG INHALER IH PRN (17:45)
[2022-02-08] MEDS ORDERED: ondansetron 4mg rapidly disintigrating tab PO ONE (18:35)
--- NOTE | 2022-02-08 18:36 | NUR ---
ONE TIME ZOFRAN ROUTE CHANGE RT/ NO IV ACCESS AT TIME OF ADMINISTRATION
[2022-02-08] MEDS: K and/or MAG REPLACEMENT MC SCH (19:07)
[2022-02-08] MEDS ORDERED: RIBA200T14 PO (19:30)
[2022-02-08] MEDS ORDERED: GABA-530 PO (19:31)
[2022-02-08] MEDS ORDERED: RIBAVIRIN 200 MG PO SCH (20:00)
[2022-02-08] MEDS ORDERED: ampicillin/sulbac 3gm/NS 100ml 100 ML IV SCH (20:00)
[2022-02-08] MEDS ORDERED: temazepam 15mg capsule PO PRN (21:00)
[2022-02-08] MEDS: normal saline 1000ml 1,000 ML IV SCH (21:16)
[2022-02-08 21:45] VITALS: BP 119/47
[2022-02-08] MEDS ORDERED: oxyCODONE/APAP 5-325mg tablet PO PRN (21:50)
[2022-02-08] MEDS: gabapentin 100mg capsule PO SCH (22:12)
[2022-02-08] MEDS: docusate sod 100mg capsule PO SCH (22:12)
[2022-02-08] MEDS: lactobacillus rhamnosus 10,000 MMU CELLS/CAPSULE PO SCH (22:12)
[2022-02-08] MEDS: piperacillin/tazo 3.375gm/50ml 50 ML IV SCH (23:37)
[2022-02-09 06:00] VITALS: BP 109/49
[2022-02-09] MEDS: normal saline 1000ml 1,000 ML IV SCH ×2 (06:25→13:40)
--- NOTE | 2022-02-09 06:32 | NUR ---
REESE'D VERBAL REPORT FROM CHUCHO BUCKLEY. RN, AND ASSUMED CARE OF PATIENT WHEN SHE ARRIVED ON THE ORTHO/NEURO FLOOR AT 2145 LAST NIGHT. PATIENT AMBULATED TO THE ORTHO BED FROM HALLWAY USING FWW, THEN THE THE BATHROOM TO VOID AND CHANGE INTO [place]. HAD AN INCIDENCE OF INCONTINENCE IN ED SHE WAS VOMITING AFTER RC'G PERCOCET AND DID NOT HAVE IV ACCESS TO RC'V ZOFRAN. PATIENT ALERT AND ORIENTED, PAIN CONTROLLED ON ADMIT. NOTICABLE SWELLING TO R HAND FROM CAT BITE THAT DEVELOPED INTO CELLULITIS. PATIENT ADMISSION COMPLETED AND ASSMT NOTED AND DOCUMENTED. VITAL SIGNS STABLE, PATIENT WELL CONTROLLED
--- NOTE | 2022-02-09 06:37 | NUR ---
Problems reprioritized. Patient report given, questions answered & plan of care reviewed with FRANCY CRISTOBAL.
[2022-02-09 06:46] LABS: BASOPHILS % (AUTO) 0.2 % (0-1); EOSINOPHILS % (AUTO) 0.1 % (0-6); HEMATOCRIT 34.9 % (35.0-45.0); LYMPHOCYTES # (AUTO) 0.3 X10'3 (1.1-4.8); LYMPHOCYTES % (AUTO) 8.2 % (21-51); MEAN CORPUSCULAR HEMOGLOBIN 33.5 PG (27.0-31.0); MEAN CORPUSCULAR HGB CONC 34.2 g/dL (33.0-36.5); MEAN CORPUSCULAR VOLUME 97.9 FL (78-98); MEAN PLATELET VOLUME 7.8 FL (7.4-10.4); MONOCYTES # (AUTO) 0.1 X10'3 (0-0.9); MONOCYTES % (AUTO) 2.6 % (2-12); NEUTROPHILS # (AUTO) 3.3 X10'3 (1.8-7.7); NEUTROPHILS % (AUTO) 88.9 % (42-75); PLATELET COUNT 118 X10'3 (140-440); RED BLOOD COUNT 3.57 X10'6 (4.20-5.60); RED CELL DISTRIBUTION WIDTH 13.9 % (11.5-14.5); WHITE BLOOD COUNT 3.7 X10'3 (4.5-11.0)
[2022-02-09 06:56] LABS: ALBUMIN 2.5 G/DL (3.4-5.0); ANION GAP 4 (8-16); BLOOD UREA NITROGEN 9 MG/DL (7-18); BUN/CREATININE RATIO 15.5 (6.6-38.0); C-REACTIVE PROTEIN 0.89 MG/DL (0.0-0.5); CALCIUM 8.2 MG/DL (8.5-10.1); CHLORIDE 108 MMOL/L (99-107); CREATININE 0.58 MG/DL (0.40-0.90); GLUCOSE 186 MG/DL (70-104); MAGNESIUM 1.9 MG/DL (1.5-2.4); POTASSIUM 4.1 MMOL/L (3.5-5.1); SODIUM 135 MMOL/L (135-145); TOTAL CARBON DIOXIDE 22.8 MMOL/L (24-32); TOTAL PROTEIN 6.4 G/DL (6.4-8.2); eGFR > 90 ML/MIN
[2022-02-09 06:57] LABS: ALANINE AMINOTRANSFERASE 34 U/L (12-78); ALBUMIN/GLOBULIN RATIO 0.6 (1.1-1.5); ALKALINE PHOSPHATASE 108 IU/L (46-116); ASPARTATE AMINO TRANSFERASE 40 U/L (10-37)
[2022-02-09] MEDS: K and/or MAG REPLACEMENT MC SCH ×2 (08:00→20:00)
[2022-02-09] MEDS: gabapentin 100mg capsule PO SCH ×3 (08:00→20:29)
[2022-02-09] MEDS: lactobacillus rhamnosus 10,000 MMU CELLS/CAPSULE PO SCH ×2 (08:00→20:29)
[2022-02-09] MEDS: docusate sod 100mg capsule PO SCH ×2 (08:00→20:29)
[2022-02-09] MEDS: piperacillin/tazo 3.375gm/50ml 50 ML IV SCH ×3 (08:00→23:41)
[2022-02-09] MEDS: [UNRECOGNIZED DRUG - OTHER] PO SCH (08:01)
[2022-02-09] MEDS: enoxaparin 40mg/0.4ml syringe SUBCUT SCH (08:01)
[2022-02-09] MEDS ORDERED: RIBAVIRIN 200 MG PO SCH (08:44)
[2022-02-09] MEDS: RIBAVIRIN 200 MG PO SCH ×2 (09:04→20:28)
[2022-02-09 10:00] VITALS: BP 120/66
[2022-02-09 18:00] VITALS: BP 93/43
--- NOTE | 2022-02-09 18:33 | NUR ---
Patient in room ORTHO 4014. I have received report from deon Tineo and had the opportunity to ask questions and assume patient care.
[2022-02-09 22:00] VITALS: BP 99/68
--- NOTE | 2022-02-10 06:15 | NUR ---
Problems reprioritized. Patient report given, questions answered & plan of care reviewed with SUSU AGARWAL.
[2022-02-10 07:10] LABS: BASOPHILS % (AUTO) 0.1 % (0-1); EOSINOPHILS % (AUTO) 0.4 % (0-6); HEMATOCRIT 36.1 % (35.0-45.0); HEMOGLOBIN 12.1 g/dl (12.0-16.0); LYMPHOCYTES # (AUTO) 0.9 X10'3 (1.1-4.8); MEAN CORPUSCULAR HEMOGLOBIN 33.4 PG (27.0-31.0); MEAN CORPUSCULAR HGB CONC 33.6 g/dL (33.0-36.5); MEAN CORPUSCULAR VOLUME 99.4 FL (78-98); MEAN PLATELET VOLUME 8.4 FL (7.4-10.4); MONOCYTES # (AUTO) 1.1 X10'3 (0-0.9); MONOCYTES % (AUTO) 14.7 % (2-12); NEUTROPHILS # (AUTO) 5.2 X10'3 (1.8-7.7); NEUTROPHILS % (AUTO) 71.8 % (42-75); PLATELET COUNT 110 X10'3 (140-440); RED BLOOD COUNT 3.63 X10'6 (4.20-5.60); RED CELL DISTRIBUTION WIDTH 14.1 % (11.5-14.5); WHITE BLOOD COUNT 7.2 X10'3 (4.5-11.0)
[2022-02-10 07:44] LABS: ALANINE AMINOTRANSFERASE 31 U/L (12-78); ALBUMIN 2.4 G/DL (3.4-5.0); ALBUMIN/GLOBULIN RATIO 0.6 (1.1-1.5); ALKALINE PHOSPHATASE 125 IU/L (46-116); ANION GAP 7 (8-16); ASPARTATE AMINO TRANSFERASE 37 U/L (10-37); BILIRUBIN,TOTAL 0.7 MG/DL (0.1-1.0); BLOOD UREA NITROGEN 11 MG/DL (7-18); BUN/CREATININE RATIO 20.8 (6.6-38.0); CALCIUM 8.5 MG/DL (8.5-10.1); CHLORIDE 111 MMOL/L (99-107); CREATININE 0.53 MG/DL (0.40-0.90); GLUCOSE 113 MG/DL (70-104); MAGNESIUM 2.1 MG/DL (1.5-2.4); SODIUM 140 MMOL/L (135-145); TOTAL CARBON DIOXIDE 21.8 MMOL/L (24-32); TOTAL PROTEIN 6.4 G/DL (6.4-8.2); eGFR > 90 ML/MIN
[2022-02-10 07:45] LABS: POTASSIUM 4.5 MMOL/L (3.5-5.1)
[2022-02-10] MEDS: K and/or MAG REPLACEMENT MC SCH ×2 (08:00→20:00)
[2022-02-10] MEDS: piperacillin/tazo 3.375gm/50ml 50 ML IV SCH ×3 (08:11→23:54)
[2022-02-10] MEDS: lactobacillus rhamnosus 10,000 MMU CELLS/CAPSULE PO SCH ×2 (08:11→20:01)
[2022-02-10] MEDS: enoxaparin 40mg/0.4ml syringe SUBCUT SCH (08:11)
[2022-02-10] MEDS: gabapentin 100mg capsule PO SCH ×3 (08:11→20:01)
[2022-02-10] MEDS: docusate sod 100mg capsule PO SCH ×2 (08:11→20:01)
[2022-02-10] MEDS: [UNRECOGNIZED DRUG - OTHER] PO SCH (08:12)
[2022-02-10] MEDS: RIBAVIRIN 200 MG PO SCH ×2 (08:12→20:01)
[2022-02-10] MEDS: normal saline 1000ml 1,000 ML IV SCH ×3 (08:16→22:25)
[2022-02-10 10:00] VITALS: BP 108/39
[2022-02-10 18:00] VITALS: BP 120/63
[2022-02-10 22:00] VITALS: BP 115/59
--- NOTE | 2022-02-11 06:22 | NUR ---
Problems reprioritized. Patient report given, questions answered & plan of care reviewed with SUSU LINDSEY.
[2022-02-11 06:29] VITALS: BP 105/56
--- NOTE | 2022-02-11 06:30 | NUR ---
Received patient report SUSU Lopez.
[2022-02-11] MEDS: enoxaparin 40mg/0.4ml syringe SUBCUT SCH (08:00)
[2022-02-11] MEDS: K and/or MAG REPLACEMENT MC SCH (08:00)
[2022-02-11] MEDS: piperacillin/tazo 3.375gm/50ml 50 ML IV SCH (08:16)
[2022-02-11] MEDS: normal saline 1000ml 1,000 ML IV SCH (08:25)
[2022-02-11] MEDS: lactobacillus rhamnosus 10,000 MMU CELLS/CAPSULE PO SCH (08:50)
[2022-02-11] MEDS: gabapentin 100mg capsule PO SCH (08:51)
[2022-02-11] MEDS: docusate sod 100mg capsule PO SCH (08:51)
[2022-02-11] MEDS: RIBAVIRIN 200 MG PO SCH (08:52)
[2022-02-11] MEDS: [UNRECOGNIZED DRUG - OTHER] PO SCH (08:52)
[2022-02-11] MEDS ORDERED: AMOX-580 PO ×3 (08:54→10:50)
== END 2022-02-11 10:20 | disposition home or self-care (01) | DRG 383 ==
LOC: ER 14:32 → ED HOLD 17:42 → EDBEDREQ 20:59 → ORTHO 4S 21:53
PROVIDERS: ADMIT Family Medicine; ATTEND Family Medicine
DX: L03.113 Cellulitis of right upper limb (principal); B18.2 Chronic viral hepatitis C; G89.29 Other chronic pain; M06.9 Rheumatoid arthritis, unspecified; M15.9 Polyosteoarthritis, unspecified; F17.210 Nicotine dependence, cigarettes, uncomplicated; Z83.3 Family history of diabetes mellitus; Z85.41 Personal history of malignant neoplasm of cervix uteri; Z56.0 Unemployment, unspecified; Z88.5 Allergy status to narcotic agent; Z88.8 Allergy status to other drugs, medicaments and biological substances; W55.01XD Bitten by cat, subsequent encounter; Z79.899 Other long term (current) drug therapy
CPT/HCPCS: 36415; 73200; 73720; 80053; 83605; 83735; 84145; 85025; 85651; 86140; 87040; 87081; 96374; 96375; 99285; A6258; G0378; J0295; J1100; J1650; J2543; J7030

== ENCOUNTER 2022-07-10 15:32 | Outpatient (CLI) | payer MEDICAID ==
[~2022-07-10 15:32] MED LIST changes: -ALBU6.7H9 INH; -AMOX-117 PO; +AMOX-580 PO; -BUPR-344 PO; -CLIN150C8 PO; -EPIN0.3P3 IM; +GABA-530 PO; -HYDR-3686 PO; -LACT1CAP26 PO; -ONDA4TAB12 PO; -ONDA4TAB6 PO; -OXYC-145 PO; +RIBA200T14 PO
[2022-07-10 16:27] LABS: HEMOGLOBIN 13.2 g/dl (12.0-16.0); MONOCYTES # (AUTO) 0.4 X10'3 (0-0.9); RED CELL DISTRIBUTION WIDTH 14.7 % (11.5-14.5); WHITE BLOOD COUNT 3.5 X10'3 (4.5-11.0)
[2022-07-10 16:28] LABS: EOSINOPHILS # (AUTO) 0.2 X10'3 (0-0.9); EOSINOPHILS % (AUTO) 4.6 % (0-6); HEMATOCRIT 38.6 % (35.0-45.0); LYMPHOCYTES # (AUTO) 0.9 X10'3 (1.1-4.8); LYMPHOCYTES % (AUTO) 25.4 % (21-51); MEAN CORPUSCULAR HEMOGLOBIN 34.1 PG (27.0-31.0); MEAN CORPUSCULAR HGB CONC 34.3 g/dL (33.0-36.5); MEAN CORPUSCULAR VOLUME 99.5 FL (78-98); MEAN PLATELET VOLUME 7.7 FL (7.4-10.4); MONOCYTES % (AUTO) 12.2 % (2-12); NEUTROPHILS % (AUTO) 56.8 % (42-75); PLATELET COUNT 123 X10'3 (140-440); RED BLOOD COUNT 3.88 X10'6 (4.20-5.60)
[2022-07-10 16:36] LABS: ALANINE AMINOTRANSFERASE 42 U/L (12-78); ALBUMIN 2.6 G/DL (3.4-5.0); ALBUMIN/GLOBULIN RATIO 0.6 (1.1-1.5); ALKALINE PHOSPHATASE 219 IU/L (46-116); ANION GAP 6 (8-16); ASPARTATE AMINO TRANSFERASE 61 U/L (10-37); BLOOD UREA NITROGEN 9 MG/DL (7-18); BUN/CREATININE RATIO 15.8 (6.6-38.0); CALCIUM 8.4 MG/DL (8.5-10.1); CHLORIDE 109 MMOL/L (99-107); CREATININE 0.57 MG/DL (0.40-0.90); POTASSIUM 3.8 MMOL/L (3.5-5.1); SODIUM 143 MMOL/L (135-145); TOTAL CARBON DIOXIDE 28.3 MMOL/L (24-32); eGFR > 90 ML/MIN
[2022-07-10 16:40] LABS: BILIRUBIN,DIRECT 0.4 MG/DL (0-0.3); GLUCOSE 139 MG/DL (70-104)
== END 2022-07-10 23:59 | disposition home or self-care (01) ==
LOC: LAB 15:32
PROVIDERS: ATTEND Transplant Surgery
DX: B18.2 Chronic viral hepatitis C (principal); K74.60 Unspecified cirrhosis of liver
CPT/HCPCS: 36415; 80053; 82248; 85025; 85610; 87522

== ENCOUNTER 2023-01-20 18:53 | Emergency (ER) | payer MEDICAID ==
[~2023-01-20] VITALS: Ht 165.1 cm; Wt 90.9 kg
[2023-01-20 19:36] VITALS: BP 124/56
[2023-01-20 21:31] LABS: CLARITY,URINE SLIGHTLY CLOUDY (Clear); COLOR,URINE YELLOW (Yellow); GLUCOSE, URINE NEGATIVE (Neg); KETONES,URINE NEGATIVE (Neg); LEUKOCYTE ESTERASE ,URINE NEGATIVE (Neg); NITRITES, URINE NEGATIVE (Neg); OCCULT BLOOD,URINE LARGE (Neg); PH,URINE 6.5 (4.8-8.0); PROTEIN,URINE NEGATIVE (Neg)
[2023-01-20 21:37] LABS: UA COLLECTION TYPE CLN CATCH MIDSTREAM
[2023-01-20 21:40] LABS: SQUAMOUS EPITHELIAL CELL,UR MANY /LPF (FEW)
[2023-01-20 21:41] LABS: BACTERIA,URINE 1+ /HPF (Neg); MUCUS STRANDS MODERATE /LPF (Neg); RBC,URINE TNTC /HPF (0-2)
[2023-01-20 21:42] LABS: WBC,URINE 0-4 /HPF (0-4)
== END 2023-01-20 21:25 | disposition left against medical advice (07) ==
LOC: ER 18:53
DX: Z00.00 Encounter for general adult medical examination without abnormal findings (principal)
CPT/HCPCS: 81001; 99283

== ENCOUNTER 2023-07-11 10:59 | Emergency (ER) | payer MEDICAID ==
[~2023-07-11] VITALS: Ht 165.1 cm; Wt 101.8 kg
[2023-07-11 12:14] VITALS: BP 110/52; PULSE 69; RESP 20; TEMP 97; O2SAT 97
[2023-07-11] MEDS ORDERED: ondansetron 4mg rapidly disintigrating tab PO ONE (13:15)
[2023-07-11] MEDS ORDERED: normal saline 1000ML IV soln IVB ONE (13:25)
[2023-07-11 14:38] LABS: BASOPHILS % (AUTO) 0.8 % (0-1); EOSINOPHILS # (AUTO) 0.1 X10'3 (0-0.9); EOSINOPHILS % (AUTO) 2.6 % (0-6); HEMATOCRIT 37.7 % (35.0-45.0); LYMPHOCYTES % (AUTO) 19.6 % (21-51); MEAN CORPUSCULAR HEMOGLOBIN 34.7 PG (27.0-31.0); MEAN CORPUSCULAR HGB CONC 34.5 g/dL (33.0-36.5); MEAN CORPUSCULAR VOLUME 100.6 FL (78-98); MEAN PLATELET VOLUME 7.3 FL (7.4-10.4); MONOCYTES # (AUTO) 0.7 X10'3 (0-0.9); MONOCYTES % (AUTO) 13.2 % (2-12); NEUTROPHILS # (AUTO) 3.3 X10'3 (1.8-7.7); NEUTROPHILS % (AUTO) 63.8 % (42-75); PLATELET COUNT 146 X10'3 (140-440); RED BLOOD COUNT 3.75 X10'6 (4.20-5.60); RED CELL DISTRIBUTION WIDTH 14.5 % (11.5-14.5); WHITE BLOOD COUNT 5.2 X10'3 (4.5-11.0)
[2023-07-11 14:41] LABS: ALANINE AMINOTRANSFERASE 46 U/L (12-78); ALBUMIN 2.6 G/DL (3.4-5.0); ALBUMIN/GLOBULIN RATIO 0.7 (1.1-1.5); ALKALINE PHOSPHATASE 110 IU/L (46-116); ANION GAP 4 (8-16); ASPARTATE AMINO TRANSFERASE 67 U/L (10-37); BLOOD UREA NITROGEN 10 MG/DL (7-18); BUN/CREATININE RATIO 17.2 (10.0-20.0); CALCIUM 8.7 MG/DL (8.5-10.1); CHLORIDE 106 MMOL/L (99-107); CREATININE 0.58 MG/DL (0.40-0.90); LIPASE 28 U/L (16-77); SODIUM 137 MMOL/L (135-145); TOTAL CARBON DIOXIDE 27.1 MMOL/L (24-32); TOTAL PROTEIN 6.6 G/DL (6.4-8.2); eCRCL 92 ML/MIN; eGFR > 90 ML/MIN
[2023-07-11 14:46] LABS: GLUCOSE 81 MG/DL (70-104)
[2023-07-11] MEDS ORDERED: ONDA4TAB12 PO (14:51)
== END 2023-07-11 15:12 | disposition home or self-care (01) ==
LOC: ER 10:59
DX: K52.9 Noninfective gastroenteritis and colitis, unspecified (principal); Z56.0 Unemployment, unspecified; Z85.41 Personal history of malignant neoplasm of cervix uteri; Z88.8 Allergy status to other drugs, medicaments and biological substances; Z79.2 Long term (current) use of antibiotics; Z79.899 Other long term (current) drug therapy; Z88.5 Allergy status to narcotic agent
CPT/HCPCS: 36415; 80053; 82948; 83690; 85025; 99283; J7030

== ENCOUNTER 2023-07-13 14:02 | Emergency (ER) | payer MEDICAID ==
[~2023-07-13] VITALS: Ht 165.1 cm; Wt 101.8 kg
[~2023-07-13 14:02] MED LIST changes: +ONDA4TAB12 PO
[2023-07-13 14:07] VITALS: BP 102/50; PULSE 68; RESP 18; TEMP 98.6; O2SAT 99
[2023-07-13 14:51] LABS: BILIRUBIN,URINE NEGATIVE (Neg); CLARITY,URINE SLIGHTLY CLOUDY (Clear); GLUCOSE, URINE NEGATIVE (Neg); KETONES,URINE TRACE mg/dl (Neg); LEUKOCYTE ESTERASE ,URINE NEGATIVE (Neg); NITRITES, URINE NEGATIVE (Neg); OCCULT BLOOD,URINE SMALL (Neg); PROTEIN,URINE NEGATIVE (Neg)
[2023-07-13 14:53] LABS: URINE HCG NEGATIVE (NEG)
[2023-07-13 15:02] LABS: COLOR,URINE DARK YELLOW (Yellow); UA COLLECTION TYPE CLN CATCH MIDSTREAM
[2023-07-13 15:03] LABS: MUCUS STRANDS MANY /LPF (Neg)
[2023-07-13 15:04] LABS: BACTERIA,URINE FEW /HPF (Neg); SQUAMOUS EPITHELIAL CELL,UR MODERATE /LPF (FEW)
[2023-07-13 15:05] LABS: TRANSITIONAL EPI CELLS,URINE FEW /HPF; WBC,URINE 0-4 /HPF (0-4)
== END 2023-07-13 21:08 | disposition left against medical advice (07) ==
LOC: ER 14:03
DX: R11.2 Nausea with vomiting, unspecified (principal); Z53.21 Procedure and treatment not carried out due to patient leaving prior to being seen by health care provider
CPT/HCPCS: 81001; 81025; 82948; 99281

== ENCOUNTER 2024-01-26 15:07 | Emergency (ER) | payer MEDICAID ==
[~2024-01-26] VITALS: Ht 165.1 cm; Wt 90.9 kg
[2024-01-26 15:15] VITALS: BP 103/50; PULSE 83; RESP 14; TEMP 98.7; O2SAT 95
== END 2024-01-26 17:56 | disposition home or self-care (01) ==
LOC: ER 15:08
DX: S83.91XA Sprain of unspecified site of right knee, initial encounter (principal); E11.9 Type 2 diabetes mellitus without complications; Z85.41 Personal history of malignant neoplasm of cervix uteri; Z88.8 Allergy status to other drugs, medicaments and biological substances; X50.1XXA Overexertion from prolonged static or awkward postures, initial encounter; Y93.89 Activity, other specified; Y92.89 Other specified places as the place of occurrence of the external cause; Y99.8 Other external cause status
CPT/HCPCS: 73564; 99284; A6449

== ENCOUNTER 2024-07-31 14:32 | Emergency (ER) | payer MEDICAID ==
[~2024-07-31] VITALS: Ht 165.1 cm; Wt 67.3 kg
[~2024-07-31 14:32] MED LIST changes: +ONDA-243 PO; -ONDA4TAB12 PO
[2024-07-31] MEDS ORDERED: AMOX-117 PO (15:20)
[2024-07-31 15:25] VITALS: BP 142/88; PULSE 86; RESP 18; TEMP 97.8; O2SAT 97
== END 2024-07-31 15:26 | disposition home or self-care (01) ==
LOC: ER 14:33
DX: S60.512A Abrasion of left hand, initial encounter (principal); E11.9 Type 2 diabetes mellitus without complications; Z85.41 Personal history of malignant neoplasm of cervix uteri; Z56.0 Unemployment, unspecified; Z88.1 Allergy status to other antibiotic agents; Z88.5 Allergy status to narcotic agent; Z88.8 Allergy status to other drugs, medicaments and biological substances; Z79.899 Other long term (current) drug therapy; W55.03XA Scratched by cat, initial encounter; Y93.89 Activity, other specified; Y92.89 Other specified places as the place of occurrence of the external cause; Y99.8 Other external cause status
CPT/HCPCS: 99283

== ENCOUNTER 2024-08-15 18:11 | Emergency (ER) | payer MEDICAID ==
[~2024-08-15] VITALS: Ht 160 cm; Wt 111.8 kg
[2024-08-15] MEDS ORDERED: mineral oil/petrolatum ophthal oint EACHEYE PRN (18:25)
[2024-08-15 22:28] LABS: BILIRUBIN,URINE NEGATIVE (Neg); CLARITY,URINE CLEAR (Clear); COLOR,URINE YELLOW (Yellow); GLUCOSE, URINE NEGATIVE (Neg); KETONES,URINE NEGATIVE (Neg); LEUKOCYTE ESTERASE ,URINE NEGATIVE (Neg); NITRITES, URINE NEGATIVE (Neg); OCCULT BLOOD,URINE NEGATIVE (Neg); PROTEIN,URINE TRACE mg/dl (Neg)
[2024-08-15 22:32] LABS: UA COLLECTION TYPE CLN CATCH MIDSTREAM
[2024-08-15 22:35] LABS: BACTERIA,URINE NONE SEEN /HPF (Neg); RBC,URINE NONE SEEN /HPF (0-2); SQUAMOUS EPITHELIAL CELL,UR FEW /LPF (FEW); WBC,URINE 0-4 /HPF (0-4)
[2024-08-15] MEDS ORDERED: AZIT-164 PO (22:47)
[2024-08-15] MEDS ORDERED: PRED20TA PO (22:47)
[2024-08-15] MEDS ORDERED: VALA100031 PO (22:47)
[2024-08-15] MEDS: predniSONE 20 mg tablet PO ONE (22:53)
[2024-08-15] MEDS: azithromycin 250mg tablet PO ONE (22:53)
[2024-08-15] MEDS: valacyclovir 500mg tablet PO SCH (22:54)
[2024-08-15 22:59] VITALS: BP 134/70; PULSE 74; RESP 16; TEMP 98.2; O2SAT 97
== END 2024-08-15 23:02 | disposition home or self-care (01) ==
LOC: ER 18:11
DX: G51.0 Bell's palsy (principal); C7A.00 Malignant carcinoid tumor of unspecified site; E11.9 Type 2 diabetes mellitus without complications; F17.200 Nicotine dependence, unspecified, uncomplicated; R41.0 Disorientation, unspecified; Z88.1 Allergy status to other antibiotic agents; Z88.5 Allergy status to narcotic agent; Z88.8 Allergy status to other drugs, medicaments and biological substances; Z88.0 Allergy status to penicillin; Z79.899 Other long term (current) drug therapy; Z85.41 Personal history of malignant neoplasm of cervix uteri
CPT/HCPCS: 70450; 81001; 82948; 99285; J7512

== ENCOUNTER 2025-06-05 12:52 | Inpatient (IN) | payer MEDICAID ==
[~2025-06-05] VITALS: Ht 165.1 cm; Wt 113.6 kg
[~2025-06-05 12:52] MED LIST changes: +VALA100031 PO
--- NOTE | 2025-06-05 14:12 | Physician Documentation ---
Addendum CHIEF COMPLAINT/HPI: The patient is a 64-year-old female with a history of lymphedema in both legs, back pain and difficulty ambulating who was bitten by her 2-1/2-month-old kitten in the right ankle a three days ago and since has developed swelling, redness and pain of the right lower extremity. She also complains of chills. Tetanus status is up-to-date. REVIEW OF SYSTEMS: Constitutional: Chills HEENT: Denies hearing loss, sinus pressure or visual changes. Respiratory: Denies cough, shortness of breath or wheezing. Cardiovascular: Denies chest pain, pain while walking (claudication), edema or palpitations. Gastrointestinal: Denies abdominal pain, blood in stool, constipation, diarrhea, heartburn, loss of appetite, nausea or vomiting. Genitourinary: Denies painful urination (dysuria), excessive amount of urine (polyuria) or urinary frequency. Metabolic/Endocrine: Denies cold intolerance, heat intolerance, excessive thirst (polydipsia) or excessive hunger (polyphagia). Neurological: Denies dizziness, extremity numbness, extremity weakness, headaches, seizures or tremors. Psychiatric: Denies anxiety or depression. Integumentary: Denies breast discharge, breast lump, hives, mole change(s), rash or skin lesion. Musculoskeletal: Swelling of right lower extremity, pain, redness Hematologic: Denies easily bleeding, easily bruises, lymphedema or issues with blood clots. Immunologic: Denies food allergies or seasonal allergies. PHYSICAL EXAMINATION: Vitals and nursing note reviewed. Constitutional: General: Patient is awake, alert, oriented x 4 in no acute distress and well appearing. Speech is clear and lucid. Appearance: Normal appearance. Patient is not ill-appearing, toxic-appearing or diaphoretic. HENT: Head: Normocephalic and atraumatic. Mouth/Throat: Mouth: Mucous membranes are moist. Pharynx: Oropharynx is clear. Eyes: General: No scleral icterus. Extraocular Movements: Extraocular movements intact. Pupils: Pupils are equal, round, and reactive to light. Neck: Supple, no Kernig or Brudzinski sign. Cardiovascular: Rate and Rhythm: Normal rate and regular rhythm. Heart sounds: No murmur heard. Pulmonary: Effort: No respiratory distress. Breath sounds: No wheezing, rhonchi or rales. Abdominal: General: There is no distension. Palpations: There is no fluid wave, hepatomegaly or mass. Tenderness: There is no abdominal tenderness. There is no guarding. Musculoskeletal: General: Redness, pain and swelling of right lower extremity Skin: Coloration: Skin is not jaundiced. Findings: No erythema or rash. Neurological: Mental Status: Patient is alert. MEDICAL DECISION MAKING: This 64-year-old female was bitten by her kitten three days ago. The kitten is too young to have received rabies vaccination. She had a single hypotensive reading in triage but has since recovered from that. I have starting her on fluids and Unasyn. Departure Disposition: ADMITTED INPATIENT Admitted to Inpatient Unit: to hospitalist Impression: Primary Impression: Cat bite Additional Impression: Cellulitis of right lower leg Condition: Stable EMERSON SNELL MD Jun 05, 2025 14:12
[2025-06-05] MEDS ORDERED: iohexol 300mg/ml 100ml inj. ONE (14:47)
[2025-06-05 15:09] LABS: MEAN PLATELET VOLUME 7.8 FL (7.4-10.4); RED CELL DISTRIBUTION WIDTH 14.9 % (11.5-14.5)
[2025-06-05 15:31] LABS: CREATININE 0.53 MG/DL (0.40-0.90); TOTAL CARBON DIOXIDE 28.6 MMOL/L (24-32); eCRCL 99 ML/MIN; eGFR > 90 ML/MIN
--- NOTE | 2025-06-05 15:44 | RADIOLOGY REPORT ---
EXAM: CT CT LOWER EXTREMITY W/ IV CONTRAST REASON FOR EXAM: Cellulitis/abscess right lower extremity TECHNIQUE: CT of the right lower extremity the mid femur through the midfoot was performed after the administration of IV contrast. CTDI 16.8 DLP 1308 COMPARISON: None FINDINGS: There is extensive soft tissue swelling with skin thickening, greatest at the distal lower extremity and foot. No discrete fluid collection to suggest an abscess is seen. There is orthopedic hardware within the hind and midfoot. Hardware appears intact. There is a 3.6 cm chondroid lesion within the distal tibia. Small knee joint effusion. Is a small cornejo's cyst. There are no cortical erosions or periosteal reaction. No discrete fluid collection to suggest an abscess is seen. No definite acute fracture or dislocation is seen. IMPRESSION: Extensive cellulitis. No evidence for soft tissue abscess. 3.6 cm distal tibial chondroid lesion.
[2025-06-05] MEDS: normal saline 1000ml 1,000 ML IV ONE (15:45)
[2025-06-05] MEDS: ampicillin/sulbac 3gm/NS 100ml 100 ML IV STA (15:46)
[2025-06-05] MEDS: ketorolac trometh 15mg/ml vial 15 MG/ML ML IV ONE (15:52)
[2025-06-05] MEDS ORDERED: magnesium hydroxide 30ml (MOM) UD suspension PO PRN (16:25)
[2025-06-05] MEDS ORDERED: magnesium sulf-water 4G/100mL 100 ML IV PRN (16:25)
[2025-06-05] MEDS ORDERED: bisacodyl 10mg suppository rectal RC PRN (16:25)
[2025-06-05] MEDS ORDERED: morphine 4 MG/ML inj SYRINge IV PRN (16:25)
[2025-06-05] MEDS ORDERED: potassium Cl 40MEQ/1/2NS 520ml 520 ML IV PRN (16:25)
[2025-06-05] MEDS ORDERED: magnesium sulf-water 2g/50mL 50 ML IV PRN (16:25)
[2025-06-05] MEDS ORDERED: magnesium Cl slow-release 64mg tablet PO PRN (16:25)
[2025-06-05] MEDS ORDERED: potassium Cl 20 mEq SR tablet PO PRN ×2 (16:25)
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
[2025-06-05] MEDS ORDERED: HEPARIN DRIP-CARDIAC**PHARMACIST-TO-DOSE IV ONE (17:55)
[2025-06-05 19:38] VITALS: BP 99/43; PULSE 66; RESP 18; TEMP 98.8; O2SAT 97
[2025-06-05 20:00] VITALS: RESP 18
[2025-06-05] MEDS: heparin, porcine 5000 units/ml vial SQ SCH (20:00)
[2025-06-05] MEDS: ampicill/sulbac 1.5gm/NS 100ml 100 ML IV SCH (21:42)
[2025-06-05 22:00] VITALS: BP 118/50; PULSE 69; RESP 15; TEMP 98.6; O2SAT 99
[2025-06-06] MEDS: HYDROcodone/acetaminophen 5mg/325mg tablet PO PRN (03:51)
[2025-06-06] MEDS: ondansetron/PF 4mg/2ml inj IV PRN (03:53)
[2025-06-06 07:06] VITALS: BP 105/46; PULSE 95; RESP 12; TEMP 100.1; O2SAT 93
[2025-06-06 08:00] VITALS: RESP 16; O2SAT 95
[2025-06-06 09:36] LABS: MEAN PLATELET VOLUME 9.1 FL (7.4-10.4); RED CELL DISTRIBUTION WIDTH 15.5 % (11.5-14.5)
[2025-06-06 09:59] LABS: CREATININE 0.42 MG/DL (0.40-0.90); TOTAL CARBON DIOXIDE 28.4 MMOL/L (24-32); eCRCL 125 ML/MIN; eGFR > 90 ML/MIN
--- NOTE | 2025-06-06 10:23 | RADIOLOGY REPORT ---
INDICATION: Elevated bilirubin, ALP, TECHNIQUE: Multiple real-time sonographic images were obtained of the right upper quadrant. COMPARISON: CT ABDOMEN PELVIS on DOS: 01/12/22 FINDINGS: The liver demonstrates increased echotexture without focal mass lesions. The liver measures 14.1 cm. There is no intrahepatic or extrahepatic ductal dilatation. The common duct measures 0.5 cm. The gallbladder is without evidence of stone or sludge. The gallbladder wall measures 0.2 cm and is within normal limits. The right kidney measures 12.8 cm. The right kidney is normal in contour, size, and shape. The echogenicity is normal. There is no hydronephrosis. The pancreas is not well visualized due to overlying bowel gas. IMPRESSION: No sonographic evidence of gallstones or acute cholecystitis. Hepatic steatosis.
[2025-06-06 10:30] VITALS: BP 118/61; PULSE 82; RESP 19; TEMP 97.6; O2SAT 96
[2025-06-06] MEDS: nicotine 14mg patch - 24hr TD SCH (12:20)
--- NOTE | 2025-06-06 17:05 | PROGRESS NOTE- Residence ---
Progress Note - Resident Providers to CC Resident Creating Document: KARLOS STODDARD RES ~ Antibiotic Timeout Antibiotic Ordered?: Yes Subjective Patient was examined at bedside and she reports improvement in her symptoms Objective Vital Signs Date Time Temp Pulse Resp B/P (MAP) Pulse Ox O2 Delivery O2 Flow Rate FiO2 06/06/25 10:30 97.6 82 19 118/61 (80) 96 Room Air 06/06/25 08:00 0.0 Result Diagram: 06/06/25 0910 06/06/25 0910 Patient is,alert, orientedx4 HEENT:Normocephalic and atraumatic, Oral and nasal mucosa is moist. No visible head injuries Neck:Trachea is in midline. No masses or JVD Chest:Normal air movement bilaterally , Bilateral normal breath sounds. No crackles, rhonchi or wheezes Cardiovascular:Regular rate and regular rhythm. S1-S2 normal. No rubs or murmurs Abdomen:No tenderness present. Non distented ,Normoactive bowel sounds Extremities:Redness, pain and swelling of right lower extremity No cyanosis, bilateral +1 pitting edema and clubbing , No deformities, right dorsalis pedis pulse +1 PERSONAL CARE ATTENDANT:Patient is alert , awake, speech is clear CN II-XII - intact, Normal Tone and Bulk in all extremities, Sensation is intact in all extremities ,Co-ordination is intact Skin: warn and dry Advance Care Planning Advanced Care plannin - 30 Minutes Plan Plan Right lower extremity cellulitis secondary to kitten bite. Possible sepsis Chronic bilateral lymphedema CBC is okay showing microcytic mild anemia. Blood pressure is in 80/46 initially and went up to 120s Lactic acid is 1.8 Serum total bilirubin 2.4 ALP is elevated, 230 CRP is elevated On ampicillin sulbactam Ordered ultrasound for possible gallbladder stones CT lower extremity showed Extensive cellulitis. No evidence for soft tissue abscess. 3.6 cm distal tibial continuation 06/06/2025 WBC count-6.5 Abdominal ultrasound: No sonographic evidence of gallstones or acute cholecystitis.Hepatic steatosis Plan Continue ampicillin-sulbactam day 2 Hyperbilirubinemia Elevated ALP Above likely secondary to possible Obesity class 3 Follow up in outpatient for evaluation of obstructive sleep apnea Ordered ultrasound and we will follow up with the results Ordered hepatitis panel. 09/15/2024 Abdominal ultrasound: No sonographic evidence of gallstones or acute cholecystitis.Hepatic steatosis Follow-up with hepatitis panel Moderate Protein malnutrition Hypoalbuminemia Serum albumin is 2.5 Code status: Full code Diet: Regular diet DVT prophylaxis: Heparin PT: Ordered Prognosis: Guarded Karlos Stoddard PGY1-Internal Medicine Resident Date of Service: Jun 06, 2025 Billing Provider: ERVIN BRIONES MD Common Visit Codes: [id number] INP/OBS CARE(HIGH) KARLOS STODDARD, ANAT Jun 06, 2025 17:05 ERVIN BRIONES MD Jun 07, 2025 08:49
[2025-06-06 18:00] VITALS: BP 128/61; PULSE 85; RESP 18; TEMP 98.6; O2SAT 96
[2025-06-06 22:00] VITALS: BP 128/51; PULSE 76; RESP 16; TEMP 98.2; O2SAT 96
[2025-06-07 05:44] LABS: MEAN PLATELET VOLUME 8.1 FL (7.4-10.4); RED CELL DISTRIBUTION WIDTH 14.8 % (11.5-14.5)
[2025-06-07 05:57] LABS: CREATININE 0.49 MG/DL (0.40-0.90); TOTAL CARBON DIOXIDE 29.5 MMOL/L (24-32); eCRCL 107 ML/MIN; eGFR > 90 ML/MIN
[2025-06-07 06:41] VITALS: BP 108/45; PULSE 81; RESP 21; TEMP 98.1; O2SAT 95
[2025-06-07 08:27] VITALS: RESP 17; O2SAT 95
[2025-06-07 10:00] VITALS: BP 119/55; PULSE 78; RESP 18; TEMP 97.4; O2SAT 94
[2025-06-07] MEDS ORDERED: AMOX-117 PO (12:49)
[2025-06-07] MEDS ORDERED: LACT1CAP26 PO (12:53)
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
[2025-06-08 05:19] LABS: HBSAG SCREEN Negative (Negative); HEPATITIS C VIRUS ANTIBODY Reactive (Non Reactive)
== END 2025-06-07 15:32 | disposition home or self-care (01) | DRG 383 ==
LOC: ER 12:53 → ED HOLD 16:30 → SUR 3N 19:30
PROVIDERS: ADMIT Internal Medicine; ATTEND Internal Medicine
PROC: B42F1ZZ Computerized Tomography (CT Scan) of Right Lower Extremity Arteries using Low Osmolar Contrast (ICD-10-PCS; principal; 2025-06-05)
PROC: 05HF33Z Insertion of Infusion Device into Left Cephalic Vein, Percutaneous Approach (ICD-10-PCS; 2025-06-05)
PROC: B54NZZA Ultrasonography of Left Upper Extremity Veins, Guidance (ICD-10-PCS; 2025-06-05)
PROC: 05HB33Z Insertion of Infusion Device into Right Basilic Vein, Percutaneous Approach (ICD-10-PCS; 2025-06-05)
PROC: B54MZZA Ultrasonography of Right Upper Extremity Veins, Guidance (ICD-10-PCS; 2025-06-05)
DX: L03.115 Cellulitis of right lower limb (principal); E44.0 Moderate protein-calorie malnutrition; K75.9 Inflammatory liver disease, unspecified; S81.851A Open bite, right lower leg, initial encounter; E80.6 Other disorders of bilirubin metabolism; Z20.822 Contact with and (suspected) exposure to COVID-19; E66.813 Obesity, class 3; E88.09 Other disorders of plasma-protein metabolism, not elsewhere classified; Y93.89 Activity, other specified; Y92.89 Other specified places as the place of occurrence of the external cause; W55.01XA Bitten by cat, initial encounter; Y99.8 Other external cause status; Z68.41 Body mass index [BMI] 40.0-44.9, adult; Z88.5 Allergy status to narcotic agent; Z88.8 Allergy status to other drugs, medicaments and biological substances; Z79.899 Other long term (current) drug therapy
CPT/HCPCS: 36410; 36415; 73701; 76700; 76937; 80053; 83605; 83735; 84145; 85025; 86140; 86803; 87040; 87081; 87340; 87522; 87811; 96365; 96375; 97116; 97161; 97530; 99285; C1751; G0378; J0295; J1885; J2405; J7030; J7040; Q9967

== ENCOUNTER 2025-06-11 03:45 | Inpatient (IN) | payer MEDICAID ==
[~2025-06-11] VITALS: Ht 165.1 cm; Wt 120.0 kg
[~2025-06-11 03:45] MED LIST changes: +AMOX-117 PO; -AMOX-580 PO; +LACT1CAP26 PO
[2025-06-11] MEDS ORDERED: BUPR100T5 PO (03:59)
--- NOTE | 2025-06-11 04:06 | Physician Documentation ---
History of Present Illness ~ Chief Complaint: Neck pain Stated Complaint: SICKNESS Time Seen by MD: 04:03 OK to notify your PCP?: Yes Primary Medical Doctor: DINH Nichole at [facility] Source: patient, RN/MD, EMS, RN notes reviewed, EMS notes reviewed, old records Mode of Arrival: EMS Exam Limitations: no limitations HPI Patient was recently admitted on 06/05/2025 and discharged on 06/06/2025 for right lower extremity cellulitis secondary to a cat bite. Patient was given antibiotics did a bit better and was discharged home on Augmentin. Patient has a history of GI bleeding as well as well as gastric ulcers and for that reason does not take much pain medications. She did report lots of fatigue her chronic bilateral lower extremity pain lymphedema. Patient states she was given tramadol during her hospital course which controlled her pain. Patient then went home and did not feel much better. Patient states that she started developing some neck pain that has been getting progressively worse she also has a intermittent fevers as well. She has scoliosis and has had chronic back pain in the past but she just has pain that is difficulty to move. Because the pain is quite severe and she has not infection or leg she was concerned that she might have meningitis. She denies any vomiting at this time. She also denies any current fevers. Patient is now here for evaluation and care. Medication Reconciliation Allergies: Coded Allergies: diphenhydramine (Verified Allergy, Severe, 06/11/25) acetaminophen (Verified Allergy, Unknown, 06/11/25) cephalexin (Verified Allergy, Unknown, 06/11/25) codeine (Verified Allergy, Unknown, ANAPHYLAXIS, 06/11/25) THROAT SWELLS UP hydrocodone (Verified Allergy, Unknown, 06/11/25) hydromorphone (Verified Allergy, Unknown, 06/11/25) morphine (Verified Allergy, Unknown, 06/05/25) trazodone (Verified Allergy, Unknown, 06/05/25) Scheduled Amox Tr/Potassium Clavulanate (Augmentin 875-125 Tablet), 1 TAB PO Q12H Bupropion HCl (Wellbutrin Sr), 1 TAB PO QAM, (Reported) Lactobacillus Rhamnosus (Culturelle), 1 CAP PO DAILY ONDANSETRON ODT 4mg tablet (Ondansetron Odt), 1 TABLET PO TID prn Valacyclovir HCl (Valacyclovir), 1 TAB PO Q8H Discontinued Medications Amox Tr/Potassium Clavulanate 875/125 MG (Augmentin 875/125 MG), 1 TAB PO BID Gabapentin (Gabapentin), 100 MG PO TID, (Reported) Discontinued Reason: patient no longer taking Ribavirin (Ribavirin), 400 MG PO BID, (Reported) Discontinued Reason: patient no longer taking Sofosbuvir/Velpatas/Voxilaprev (Vosevi 400-100-100 mg Tablet), 1 TAB PO DAILY, (Reported) Discontinued Reason: patient no longer taking Past Medical History Past Medical History: Hepatitis C, Cervical Cancer/Dysplasia Past Surgical History: orthopedic surgeries Patient History: (Cancer) Malignant carcinoid tumor (DM Type 2) Diabetes mellitus type 2 Alcohol Use: None Drug Use: none Lives with: Other Lives In: Home Occupation: unemployed Review of Systems All Other Systems at this time: Reviewed and Negative Physical Exam Vital Signs: RN Vital Signs have been reviewed: Yes, Temperature: 98.6, Source: Oral, Heart Rate: 86, Respiratory Rate: 20, BP: 107/48, Pulse Oximetry: 96, Weight: 120.000 Oxygen Flow Rate: 0 Physical Exam General: The patient is well developed, well nourished, nontoxic appearing and is in moderate acute distress. Skin: [place], warm and dry with no rashes. HEENT: Head was normocephalic and atraumatic. Eyes - pupils equal, round, reactive to light and accommodation. Extraocular movements were intact. Conjunctivae were nonicteric. The mouth and oropharynx were clear with moist mucous membranes. There were no pharyngeal exudates or erythema. Neck: Diffusely tender both midline and paraspinal tenderness. There was no jugular venous distention, lymphadenopathy, thyromegaly or masses. Back: Upper thoracic diffusely tender decreased range of motion both midline and paraspinal tenderness. Chest: Clear to auscultation bilaterally without wheezes, rales or rhonchi. No accessory muscle use. No dullness to percussion. Heart: Rate regular and rhythmic. S1, S2. No murmurs. Palpation of the chest wall was normal. No rubs or thrills. Abdomen: Soft, nontender and nondistended. Positive bowel sounds. No guarding or rebound. No hepatosplenomegaly or palpable masses. Extremities: Patient was all extremities. Bilateral lower extremity pitting edema with chronic venous stasis changes. Read lower extremity on the right [id number] above the foot Neurologic: Motor sensory grossly intact Psychologic: The patient was oriented to person, place and time. The patient demonstrated appropriate judgement and insight. Progress Results/Orders Reviewed/noted all lab results: Yes Results/Orders Orders - EMERSON SNELL MD Page Hospitalist (06/11/25 09:27) [place] Prov.Neuro Consult (06/11/25 11:54) Completed Orders - EMERSON SNELL MD Electrocardiogram (06/11/25 03:52) Medications Received in ER Medications (Trade) Dose Ordered Sig/Soheila Route PRN Reason Start Time Stop Time Status Last Admin Dose Admin Vancomycin HCl 250 ml @ 166 mls/hr ONCE ONCE IV 06/11/25 08:00 06/11/25 09:30 DC 06/11/25 08:29 166 MLS/HR Vital Signs 06/11/25 06/11/25 06/11/25 06/11/25 03:47 04:37 04:48 05:49 Temp 98.6 Pulse 86 Resp 20 18 18 B/P (MAP) 107/48 Pulse Ox 96 99 O2 Delivery Nasal Cannula* O2 Flow Rate 0 2 FiO2 28 06/11/25 06/11/25 06/11/25 06/11/25 05:49 06:26 06:29 07:30 Temp 98.6 Pulse 80 83 83 Resp 18 17 16 16 B/P (MAP) 115/77 (90) 109/53 (71) 130/59 (82) Pulse Ox 98 93 94 O2 Flow Rate 2 0 0 FiO2 28 06/11/25 06/11/25 06/11/25 08:30 09:30 12:02 Pulse 75 76 77 Resp 18 18 16 B/P (MAP) 123/51 (75) 123/59 (80) 113/68 (83) Pulse Ox 96 93 95 O2 Flow Rate 0 0 Laboratory Tests Test 06/11/25 04:30 White Blood Count 5.8 Red Blood Count 3.22 L Hemoglobin 11.5 L Hematocrit 33.3 L Mean Corpuscular Volume 103.7 H Mean Corpuscular Hemoglobin 35.8 H Mean Corpuscular Hemoglobin Concent 34.5 Red Cell Distribution Width 15.1 H Platelet Count 120 L Mean Platelet Volume 7.8 Neutrophils (%) (Auto) 49.7 Lymphocytes (%) (Auto) 21.2 Monocytes (%) (Auto) 24.8 H Eosinophils (%) (Auto) 3.3 Basophils (%) (Auto) 1.0 Neutrophils # (Auto) 2.9 Lymphocytes # (Auto) 1.2 Monocytes # (Auto) 1.4 H Eosinophils # (Auto) 0.2 Basophils # (Auto) 0.1 CBC Comment Differential Total Cells Counted 100 Neutrophils % (Manual) 54.0 Lymphocytes % (Manual) 20.0 L Monocytes % (Manual) 23.0 H Eosinophils % (Manual) 3.0 Platelet Estimate Decreased Red Blood Cell Morphology Perf Basophilic Stippling Anisocytosis 1+ Macrocytosis 1+ Erythrocyte Sedimentation Rate 33 H Sodium Level 140 Potassium Level 3.7 Chloride Level 108 H Carbon Dioxide Level 26.8 Anion Gap 5 L Blood Urea Nitrogen 9 Creatinine 0.54 Estimated GFR/1.73 m2 > 90 BUN/Creatinine Ratio 16.7 Glucose Level 109 H Calcium Level 8.8 Total Bilirubin 1.6 H Direct Bilirubin 0.5 H Aspartate Amino Transf (AST/SGOT) 44 H Alanine Aminotransferase (ALT/SGPT) 28 Alkaline Phosphatase 204 H C-Reactive Protein 5.61 H Total Protein 6.0 L Albumin 2.0 L Globulin 4.0 Albumin/Globulin Ratio 0.5 L Procalcitonin < 0.05 Chemistry Comments Ethyl Alcohol Level < 10 Microbiology Date/Time Source Procedure Growth Status 06/11/25 04:30 Blood Arm Left Blood Culture - Preliminary NEGATIVE (LESS THAN 24 HOURS) Resulted EKG/XRAY/CT/US/VASC/MRI Chest X-Ray : Additional Comments CHEST RADIOGRAPH Indication: meningitis r/o Technique: 1 view Comparison: ANGIO LINE PLACEMENT(PICC NURSE) on DOS: 06/05/25, CHEST,SINGLE VIEW on DOS: 09/17/19, CHEST,SINGLE VIEW on DOS: 09/15/19 FINDINGS: Exam limited by soft tissue attenuation and beam underpenetration. Lines and Tubes: External leads. Lungs/Pleura: No focal consolidation, pleural effusion or pneumothorax. Interstitial opacities appear within normal limits. Cardiomediastinum: Normal heart size for technique. Other: No acute osseous abnormality. IMPRESSION: 1. No acute cardiopulmonary abnormality. #1: CT: head With Contrast?: No Impression EXAM: CT CT HEAD INDICATION: pain fever headache TECHNIQUE: CT of the head without intravenous contrast. Radiation Dose : 1. Head: CT Dose: CTDI volume is 54 mGy. Dose-length product is 1043 mGy*cm The dose indicators for CT are the volume Computed Tomography (CT) Dose Index (CTDIvol) and the Dose Length Product (DLP), and are measured in units of mGy and mGy-cm, respectively. These indicators are not patient dose, but values generated from the CT scanner acquisition factors. The report includes radiation exposure data for exposures received during this examination. COMPARISON: CT CT HEAD on DOS: 08/15/24 FINDINGS: Brain: No acute hemorrhage, mass effect, or cerebral edema. CSF Spaces: Size and morphology within normal limits. Bones/Soft Tissues: No acute findings. Orbits/Sinuses/Mastoids: Unremarkable as visualized. IMPRESSION: 1. No acute intracranial abnormality. Radiation optimization: All CT scans at this facility use at least one of these dose optimization techniques: automated exposure control mA and/or kV adjustm ent per patient size (includes targeted exams where dose is matched to clinical indication) or iterative reconstruction. #2: CT: C-spine With Contrast?: No Impression EXAM: CT CT CERVICAL SPINE HISTORY: pain COMPARISON: None CTDIvol 27 mGy, DLP 589 mGy*cm. TECHNIQUE: Multiple axial CT images of the spine were obtained using bone algorithm. Axial and coronal reformatting was done. Bone and soft tissue windows were reviewed. FINDINGS: No evidence of vertebral fracture or compresison deformity. Straightening of normal lordotic curvature without listhesis. Moderate to severe multilevel spondylosis. The craniocervical junction is normally aligned with degenerative changes. The imaged paraspinal soft tissues and upper chest are unremarkable. IMPRESSION: 1. No acute finding of the cervical spine. 2. Moderate to severe multilevel spondylosis. Medical Decision Making Additional info obtained from: old records Differential Dx:Considerations: Include: Cervical muscle spasm, Discitis, DJD, Meningitis, Thyroiditis, Torticollis, Vertebral artery dissect., Other Departure Disposition: ADMITTED INPATIENT Admission Level of Care: Med/Surg with Tele Impression: Primary Impression: Lower extremity cellulitis Qualified Codes: L03.115 - Cellulitis of right lower limb Additional Impression: Neck muscle spasm Condition: Stable Referrals: NO PRIMARY CARE PROVIDER (PCP) Education Educated: Patient Educated regarding: diagnosis, need for follow up Signature Scribe Signature: No scribed Attestation: The note accurately reflects work and decisions made by me.Sharif Mcdaniels MD 06/11/25 04:06 Addendum Received patient in sign out from outgoing ED physician, Dr. Mcdaniels. Please see their note (and other providers) for further specific details regarding initial encounter. HPI/Course In Brief: Patient admitted on 06/05/2025 and discharged on 06/06/2025 for right lower extremity cellulitis secondary to a cat bite. Awoke yesterday morning with neck pain that has been getting worse. This is in the setting of resolving cellulitis of the right lower extremity for which he was admitted several days ago, three days after her kitten bit her in the ankle. She was treated with Unasyn and discharged on Augmentin. She reports intermittent fevers. ED COURSE: EKG medically necessary in the evaluation of cellulitis and interpreted by me at the time of patient evaluation. Rhythm is sinus rhythm with a rate of 74. Impression: Normal EKG. ECG reading does not show any acute signs of obvious ischemia. No evidence of A- V block. No short OH, delta waves, or wide QRS concerning for Bellamy t-Uiwacffqt-Oilcn. No long QT events on my read. I do not see evidence of Brugada with ST elevations in V1 through V3. No epsilon wave noted. No low voltage suggestive of pericardial effusion. No right ventricular strain pattern. She will require admission for worsening cellulitis and intractable neck pain. 1222 p.m.: Tele neurology reports that she does not feel the patient has meningitis and feels that an LP is not required. EMR and Dragon Attestation - this medical document was created using an [employer] medical record system with [employer] computerized dictation system. Although this document has been carefully reviewed, there may still be some phonetic and typographical errors. These errors are purely typographical, due to imperfections of the software programs, and do not reflect any compromise in the patient's medical care. Note to Patients: Physician notes are written for the purpose of communication between medical providers and billing purposes. There may be aspects of this documentation that are simplified for efficiency and clarity. Physician notes are not intended to capture the entirety of your experience in the hospital. If you have questions about the way your medical condition and care was documented, please do not hesitate to bring this up at your next visit with your physician. SHARIF MCDANIELS MD Jun 11, 2025 04:06 EMERSON SNELL MD Jun 11, 2025 06:15
--- NOTE | 2025-06-11 04:24 | RADIOLOGY REPORT ---
CHEST RADIOGRAPH Indication: meningitis r/o Technique: 1 view Comparison: ANGIO LINE PLACEMENT(PICC NURSE) on DOS: 06/05/25, CHEST,SINGLE VIEW on DOS: 09/17/19, CHEST,SINGLE VIEW on DOS: 09/15/19 FINDINGS: Exam limited by soft tissue attenuation and beam underpenetration. Lines and Tubes: External leads. Lungs/Pleura: No focal consolidation, pleural effusion or pneumothorax. Interstitial opacities appear within normal limits. Cardiomediastinum: Normal heart size for technique. Other: No acute osseous abnormality. IMPRESSION: 1. No acute cardiopulmonary abnormality.
[2025-06-11 04:49] LABS: MEAN PLATELET VOLUME 7.8 FL (7.4-10.4); RED CELL DISTRIBUTION WIDTH 15.1 % (11.5-14.5)
[2025-06-11 05:00] LABS: CREATININE 0.54 MG/DL (0.40-0.90); TOTAL CARBON DIOXIDE 26.8 MMOL/L (24-32); eCRCL 97 ML/MIN; eGFR > 90 ML/MIN
--- NOTE | 2025-06-11 05:39 | RADIOLOGY REPORT ---
EXAM: CT CT HEAD INDICATION: pain fever headache TECHNIQUE: CT of the head without intravenous contrast. Radiation Dose : 1. Head: CT Dose: CTDI volume is 54 mGy. Dose-length product is 1043 mGy*cm The dose indicators for CT are the volume Computed Tomography (CT) Dose Index (CTDIvol) and the Dose Length Product (DLP), and are measured in units of mGy and mGy-cm, respectively. These indicators are not patient dose, but values generated from the CT scanner acquisition factors. The report includes radiation exposure data for exposures received during this examination. COMPARISON: CT CT HEAD on DOS: 08/15/24 FINDINGS: Brain: No acute hemorrhage, mass effect, or cerebral edema. CSF Spaces: Size and morphology within normal limits. Bones/Soft Tissues: No acute findings. Orbits/Sinuses/Mastoids: Unremarkable as visualized. IMPRESSION: 1. No acute intracranial abnormality. Radiation optimization: All CT scans at this facility use at least one of these dose optimization techniques: automated exposure control mA and/or kV adjustment per patient size (includes targeted exams where dose is matched to clinical indication) or iterative reconstruction.
--- NOTE | 2025-06-11 05:41 | RADIOLOGY REPORT ---
EXAM: CT CT CERVICAL SPINE HISTORY: pain COMPARISON: None CTDIvol 27 mGy, DLP 589 mGy*cm. TECHNIQUE: Multiple axial CT images of the spine were obtained using bone algorithm. Axial and coronal reformatting was done. Bone and soft tissue windows were reviewed. FINDINGS: No evidence of vertebral fracture or compresison deformity. Straightening of normal lordotic curvature without listhesis. Moderate to severe multilevel spondylosis. The craniocervical junction is normally aligned with degenerative changes. The imaged paraspinal soft tissues and upper chest are unremarkable. IMPRESSION: 1. No acute finding of the cervical spine. 2. Moderate to severe multilevel spondylosis.
[2025-06-11 06:01] LABS: EOSINOPHILS % (MANUAL) 3.0 % (0-6); LYMPHOCYTES % (MANUAL) 20.0 % (21-51); MONOCYTES % (MANUAL) 23.0 % (2-12); NEUTROPHILS % (MANUAL) 54.0 % (42-75)
[2025-06-11 06:02] LABS: PLATELET ESTIMATE DECREASED
--- NOTE | 2025-06-11 08:11 | ELECTROCARDIOGRAPH REPORT ---
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
[2025-06-11] MEDS: VANCOmycin 1250MG/NS 250ml Bag 250 ML IV ONE (08:29)
[2025-06-11 09:07] LABS: ETHANOL < 10 MG/DL (<10)
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
[2025-06-11 14:19] LABS: LEUKOCYTE ESTERASE ,URINE NEGATIVE (Neg); NITRITES, URINE NEGATIVE (Neg); OCCULT BLOOD,URINE TRACE-INTACT (Neg)
[2025-06-11 14:20] LABS: UA COLLECTION TYPE VOIDED
[2025-06-11 14:25] LABS: MUCUS STRANDS FEW /LPF (Neg); SQUAMOUS EPITHELIAL CELL,UR MANY /LPF (FEW)
[2025-06-11 14:34] LABS: URINE AMPHETAMINE SCREEN POSITIVE (Neg); URINE BARBITUATE SCREEN NEGATIVE (Neg); URINE BENZODIAZEPINES SCREEN NEGATIVE (Neg); URINE CANNABINOID SCREEN NEGATIVE (Neg); URINE COCAINE SCREEN NEGATIVE (Neg); URINE METHADONE SCREEN NEGATIVE (Neg); URINE OPIATE SCREEN NEGATIVE (Neg); URINE PHENCYCLIDINE SCREEN NEGATIVE (Neg)
[2025-06-11] MEDS ORDERED: potassium Cl 40MEQ/1/2NS 520ml 520 ML IV PRN (14:50)
[2025-06-11] MEDS ORDERED: ondansetron/PF 4mg/2ml inj IV PRN (14:50)
[2025-06-11] MEDS ORDERED: magnesium sulf-water 4G/100mL 100 ML IV PRN (14:50)
[2025-06-11] MEDS ORDERED: HYDROcodone/acetaminophen 10/325mg tab PO PRN (14:50)
[2025-06-11] MEDS ORDERED: HYDROcodone/acetaminophen 5mg/325mg tablet PO PRN (14:50)
[2025-06-11] MEDS ORDERED: ondansetron 4mg rapidly disintigrating tab PO PRN (14:50)
[2025-06-11] MEDS ORDERED: mag hydrox/Alum hydrox/simeth 30ml oral suspension PO PRN (14:50)
[2025-06-11] MEDS ORDERED: magnesium hydroxide 30ml (MOM) UD suspension PO PRN (14:50)
[2025-06-11] MEDS ORDERED: potassium Cl 20 mEq SR tablet PO PRN ×2 (14:50)
[2025-06-11] MEDS ORDERED: magnesium sulf-water 2g/50mL 50 ML IV PRN (14:50)
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
[2025-06-11] MEDS ORDERED: oxyCODONE IR 5mg (immed. release) tablet PO PRN ×2 (15:00)
[2025-06-11] MEDS: nicotine 14mg patch - 24hr TD ONE (15:10)
[2025-06-11] MEDS ORDERED: albuterol 2.5 MG/3 ML nebule NEB PRN (15:10)
[2025-06-11] MEDS ORDERED: ipratropium/albuterol 3ml nebule NEB PRN (15:10)
[2025-06-11] MEDS: normal saline 1000ml 1,000 ML IV SCH (15:34)
[2025-06-11 16:34] VITALS: PULSE 72; RESP 14; O2SAT 93
[2025-06-11 18:00] VITALS: BP 144/60; PULSE 66; RESP 16; TEMP 98; O2SAT 94
[2025-06-11 19:22] VITALS: PULSE 68; RESP 20; O2SAT 96
[2025-06-11 20:00] VITALS: RESP 16; O2SAT 95
[2025-06-11] MEDS: K and/or MAG REPLACEMENT MC SCH (20:00)
[2025-06-11] MEDS: amox tr/potassium clavulanate 875/125mg TAB PO SCH (20:04)
[2025-06-11] MEDS: docusate sod 100mg capsule PO SCH (20:05)
[2025-06-11 22:00] VITALS: BP 115/47; PULSE 73; RESP 18; TEMP 98.2; O2SAT 97
[2025-06-12 05:42] LABS: MEAN PLATELET VOLUME 7.8 FL (7.4-10.4); RED CELL DISTRIBUTION WIDTH 15.2 % (11.5-14.5)
[2025-06-12 05:55] LABS: CREATININE 0.47 MG/DL (0.40-0.90); TOTAL CARBON DIOXIDE 29.1 MMOL/L (24-32); eCRCL 110 ML/MIN; eGFR > 90 ML/MIN
[2025-06-12 06:38] VITALS: BP 113/48; PULSE 83; RESP 15; TEMP 98.2; O2SAT 95
[2025-06-12] MEDS: nicotine 14mg patch - 24hr TD SCH (08:52)
[2025-06-12 10:00] VITALS: BP 96/52; PULSE 73; RESP 16; TEMP 98.4; O2SAT 94
[2025-06-12 10:44] VITALS: PULSE 72; RESP 20; O2SAT 91
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
[2025-06-12 18:00] VITALS: BP 123/88; PULSE 68; RESP 19; TEMP 98.1; O2SAT 97
[2025-06-12 20:32] VITALS: PULSE 78; RESP 16; O2SAT 98
[2025-06-12 22:00] VITALS: BP 105/54; PULSE 89; RESP 16; TEMP 98; O2SAT 94
[2025-06-13 06:00] VITALS: BP 94/51; PULSE 75; RESP 16; TEMP 97.7; O2SAT 95
[2025-06-13 07:20] VITALS: PULSE 81; RESP 16; O2SAT 96
[2025-06-13 10:00] VITALS: BP 96/59; PULSE 75; RESP 16; TEMP 98; O2SAT 94
[2025-06-13 11:00] LABS: CREATININE 0.48 MG/DL (0.40-0.90); TOTAL CARBON DIOXIDE 27.7 MMOL/L (24-32); eCRCL 108 ML/MIN; eGFR > 90 ML/MIN
[2025-06-13] MEDS ORDERED: OXYC10TA47 PO (11:17)
[2025-06-13 12:58] LABS: MEAN PLATELET VOLUME 8.3 FL (7.4-10.4); RED CELL DISTRIBUTION WIDTH 15.8 % (11.5-14.5)
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
== END 2025-06-13 12:20 | disposition home or self-care (01) | DRG 347 ==
LOC: ER 03:45 → ED HOLD 14:49 → SUR 3N 17:05
PROVIDERS: ADMIT Nurse Practitioner Family; ATTEND Nurse Practitioner Family
DX: M47.812 Spondylosis without myelopathy or radiculopathy, cervical region (principal); L03.115 Cellulitis of right lower limb; E16.2 Hypoglycemia, unspecified; E66.813 Obesity, class 3; G51.0 Bell's palsy; G89.29 Other chronic pain; M62.838 Other muscle spasm; F17.210 Nicotine dependence, cigarettes, uncomplicated; Z96.651 Presence of right artificial knee joint; F15.13 Other stimulant abuse with withdrawal; F15.129 Other stimulant abuse with intoxication, unspecified; Z83.3 Family history of diabetes mellitus; Z85.41 Personal history of malignant neoplasm of cervix uteri; Z88.1 Allergy status to other antibiotic agents; Z88.5 Allergy status to narcotic agent; Z88.6 Allergy status to analgesic agent; Z20.822 Contact with and (suspected) exposure to COVID-19; Z88.8 Allergy status to other drugs, medicaments and biological substances; Z71.6 Tobacco abuse counseling; Z68.41 Body mass index [BMI] 40.0-44.9, adult; Z56.0 Unemployment, unspecified
CPT/HCPCS: 36415; 70450; 71045; 72125; 80048; 80053; 80076; 80305; 80320; 81001; 83036; 83605; 83735; 84145; 85007; 85025; 85651; 86140; 87040; 87081; 87811; 93005; 94760; 96365; 99285; G0378; J3374; J7030; L0172